=== PATIENT | male | born 1970 | race Asian ===

== ENCOUNTER 2024-06-27 22:07 | Inpatient (IN) | payer BC, SELFPAY ==
[2024-06-27] VITALS (16 sets, daily range): BP systolic 112–160; BP diastolic 77–121; BMI 30.1; BMI 29.2
[2024-06-27 18:26] LABS: Glucose - Point of Care 94 mg/dl (70-99)
--- NOTE | 2024-06-27 18:49 | ED.CVA ---
History of Present Illness
General
Chief Complaint: CVA/TIA Symptoms
Source: patient
Exam Limitations: none
Time Seen by Provider: 06/27/24 18:36
Onset of Stroke Symptoms
Onset of symptoms known: Yes
Date of onset of symptoms: 06/27/24
History of Present Illness
History of Present Illness:
See MDM
Phy Exam
Physical Exam
Physical Exam:
See MDM
NIH Stroke Score
Level of Consciousness: 0 - Alert
LOC questions: 0-Answers both correctly
LOC Commands: 0-Performs both correctly
Best Gaze: 0-Normal
Visual Hawkins: 0=Normal, no visual loss
Facial palsy: 0=Normal, symmetrical
Motor - Right Arm: 0=No drift 10 seconds
Motor - Left Arm: 0=No drift 10 seconds
Motor - Right Le-No drift 5 seconds
Motor - Left Le-No drift 5 seconds
Limb Ataxia: 0-Absent
Sensation: 0-Normal
Best Language: 0-No aphasia
Dysarthria: 0-Normal
Extinction and Inattention: 0-No abnormality
Total Score:: 0
Course
Orders/Labs/Results
Orders:
Orders
06/27/24 18:31
EKG [Electrocardiogram (*1)] Urgent
Reason for Study: Tachycardia
EKG- Treatment ONCE
06/27/24 18:43
CT Head & Neck Angio W/wo IV Urgent
Comment:
Reason For Exam: resolved slurred speech and R arm weakness
Diltiazem 125 mg/125 ml Nss [Cardizem] 125 mg in 125 ml IV NOW
Initial dose in mg/hr, then titrate:: 5
Titrate to keep:: Heart rate 80-100 bpm
Titrate by mg/hr:: 5 mg/hr
Frequency of titrations (minutes):: 15
Maximum dose in mg/hr:: 15
Diltiazem HCl [Cardizem] 20 mg IV NOW STA
06/27/24 18:[address] Non Medication Order As Directed
Physician Order: PTT 6 hours after initial start of Heparin infusion
Above order entered?: Yes
06/27/24 18:52
Complete Blood Count/With Diff Urgent
Comprehensive Metabolic Panel Urgent
PTT Urgent
Prothrombin Time Urgent
06/27/24 19:00
Heparin 00427 Units/250 ml 25,000 units in 250 ml IV PER PROTOCOL
Weight to be used for heparin protocol in kilograms (kg):: 95
Protocol:: Cardiac Tx/Acute Coronary
PTT Goal Range to be used:: PTT 73 to 111 seconds
Order type:: Initial
INITIAL Infusion Dose (UNITS/KG/hr) & then follow protocol:: 15 units/kg/hr
Infusion Dose in UNITS/hr & then follow protocol (UNITS/hr):: 1,450
INFUSION RATE in mL/hr & then follow protocol (mL/hr):: 14.5
PTT less than or equal to 64 seconds:: Increase rate by 200 units/hr (+ 2 mL/hr)
PTT 64.1 to 72.9 seconds:: Increase rate by 100 units/hr (+ 1 mL/hr)
PTT 73 to 111 seconds:: Target Range. No change in rate.
PTT 111.1 to 130.9 seconds:: Decrease rate by 100 units/hr (- 1 mL/hr)
PTT 131 to 199.9 seconds:: HOLD for 1 hr. Then decrease rate by 200 units/hr (- 2 mL/hr)
PTT greater than or equal to 200 seconds:: HOLD for 2 hrs & Notify Provider. Then decrease by 200 units/hr (-
2 mL/hr)
Lab follow-up:: Each change, PTT q6h until 2 consecutive are therapeutic. Then PTT
daily.
06/27/24 19:08
Add On - Microbiology Urgent
Tests Added?: pt/ptt
06/27/24 21:31
Admit/Transfer Patient As Directed
Co-Sign Provider:
Level of Care: Inpatient admission
Assign to:: IVU
Physician / Group: sonam
Diagnosis: atrial fib with RVR
Reason for Hospitalization: atrial fib with RVR
Expected length of stay greater than two midnights?: Yes
ELOS- Estimated Length of Stay in days: 3
I certify the patient meets the requirements for IP care: Yes
06/27/24 21:32
Code Status As Directed
Resuscitation Status: Full Code
PRN Pain Medication Management As Directed
May give lesser potent ordered pain med per pt: Yes
preference::
Protocol:: Medication orders for pain may be administered in a
manner that supports deferring to patient preference
when the pt is:
- Requesting an ordered lesser potent pain medication.
Least to most potent pain medications are defined
as: acetaminophen < NSAID < tramadol < opioids
(morphine, oxycodone, hydromorphone).
- Requesting a lesser dose of the same medication IF
ORDERED.
- Requesting a less intrusive route of administration
if both routes are prescribed by the provider (PO <
IV).
06/27/24 21:38
CARDIOLOGY CONSULT Routine
Consulting Provider: Xavi Laguerre
Was physician already notified: Yes
06/28/24 01:38
PTT Urgent
Abnormal Lab Results
06/27/24
18:52
RBC 3.95 L 10^6/uL
(4.70-6.10)
MCV 106.8 H fL
(80.0-94.0)
MCH 36.7 H pg
(27.0-31.0)
Monocytes % 10.0 H %
(1.7-9.3)
Creatinine 1.4 H mg/dL
(0.7-1.3)
AST 70 H U/L
(17-59)
ALT 76 H U/L
(0-50)
06/27/24 18:52
06/27/24 18:52
Vital Signs
Initial and Last Documented VS:
Initial Vital Signs
Temp Pulse Resp BP Pulse Ox
98.4 F 160 20 160/121 100
06/27/24 18:22 06/27/24 18:22 06/27/24 18:22 06/27/24 18:22 06/27/24 18:22
Last Documented Vital Signs
Temp Pulse Resp BP Pulse Ox
98.4 F 108 17 122/88 97
06/27/24 18:22 06/27/24 21:15 06/27/24 21:15 06/27/24 21:30 06/27/24 21:15
MDM/Problems Addressed
Differential Diagnosis Includes:
HPI and MDM Narrative:
53-year-old male presenting as a resolved TIA. Patient developed sudden onset of expressive aphasia. This was also associated with right arm numbness and weakness. Symptoms lasted for few minutes. On arrival, patient has no neurodeficits but
found to be in rapid A-fib. Patient does acknowledge that he has had palpitations for several months. I discussed with patient that his symptoms are likely related to throwing a clot from undiagnosed A-fib. Given that his symptoms were fleeting
and have fully resolved, neurology curb sided. Will start heparin but will avoid heparin bolus per neuro. Will obtain CT angio head and neck
Physical exam
General: Well appearing and non-toxic
HEENT: protecting airway
Neck: appears supple
CV: No evidence of cyanosis. Tachycardic and irregular
Resp: No accessory muscle use
Abd: Non-distended
Extremities: No deformities
Neuro: alert. No focal neurodeficits
Psych: Normal affect
Skin: Intact
Problems Addressed including Acute and Chronic Conditions affecting care:
1. TIA
Acuity: acute
Prognosis: stable
Details: Symptoms completely resolved. Likely in the setting of clot from undiagnosed A-fib. Will obtain CT angiogram
2. A-fib with RVR
Acuity: acute
Prognosis: unstable
Details: Patient started on Cardizem drip and heparin
Differential Diagnosis (but not limited to): CVA, TIA, intracranial hemorrhage, A-fib
Testing considered: Troponin but he denies chest pain or shortness of breath
Drug therapy (if applicable): OTC meds, please see d/c instruction regarding Rx drugs
Amount and/or Complexity of Data Reviewed
Clinical info obtained from: Patient
External data reviewed: N/A
Labs I independently reviewed (but not limited to): Mild LFT elevation
Radiology: The CT scan was personally and independently reviewed. In addition, official CT report reviewed.
Pulse Ox: not hypoxic
EKG independently reviewed: A-fib with RVR, normal axis, no STEMI
Director Of Community Services: A-fib with RVR
Critical Care: The high probability of a clinically significant, sudden or life threatening deterioration of the cardiovascular system(s) required my full and direct attention, intervention and personal management. The aggregate critical care time
was 35 minutes. This time is in addition to time spent performing reported procedures but includes the following:
[x] Data Review and interpretation
[x] Patient assessment and monitoring of vital signs
[x] Documentation
[x] Medication orders and management
Risk of Complication:
Social Determinants of health: Good social support
Discussed with other providers: Hospitalist, neurologist
Escalation of Care includes Admit/Obs: Given new onset A-fib and TIA, will admit
Occasional wrong word or 'sound a like' substitutions may have occurred due to the inherent limitations of voice recognition software. Read the chart carefully and recognize, using context, where substitutions have occurred.
*Critical Care Note
Total Time (30-74mins, 75-104mins- exclusive of procedures): 35 min
ED Attending Note
-
Portions of this chart may have been created with voice recognition software.� Occasional wrong word or��sound alike� substitutions may have occurred due to the inherent limitations of voice recognition software.
Discharge Plan
Departure
Patient Disposition: Admit
Date of Disposition: 06/27/24
Time of Disposition: 21:10
Admit to: Telemetry
Presentation/result/management discussed w/ accepting MD/DO: Hospitalist
Discharge Problem:
New onset a-fib, Brain TIA
Prescriptions:
No Action
No Current Medications
0
Referrals:
NONE,* [Family Provider] -
Interventions
Interventions:
*Risk Screen - Suicide Last Done: 06/27/24 18:22
*General Assessment Last Done: 06/27/24 18:22
*Neglect/Abuse Screening Last Done: 06/27/24 18:22
ED- Fall Risk Assessment Last Done: 06/27/24 18:47
*ED COVID-19 Vaccine History Last Done: 06/27/24 18:47
ED- Pulmonary Assessment Last Done: 06/27/24 19:17
ED- Neurological Assessment Last Done: 06/27/24 19:17
ED- Cardiac Assessment Last Done: 06/27/24 18:50
Discharge Date and Time
Print Language: BURMESE
[2024-06-27] MEDS: CARDIZEM 20 MG IV (18:59)
[2024-06-27 19:01] LABS: % Basophils 0.7 % (0-2); % Eosinophils 0.7 % (0-6); % Immature Granulocytes 0.5 % (0-0.5); % Lymphocytes 43.7 % (20.5-51.1); % Neutrophils 44.4 % (42.2-75.2); Absolute Lymphocytes 2.7 10^3/uL (1.2-3.4); Absolute Monocytes 0.6 10^3/uL (0.1-0.6); Absolute Neutrophils 2.7 10^3/uL (1.4-6.5); Hematocrit 42.2 % (39.0-52.0); Hemoglobin 14.5 g/dL (13.0-18.0); Mean Corp Hgb Conc. 34.4 g/dL (33.0-37.0); Mean Corpuscular Hgb 36.7 pg (27.0-31.0); Mean Corpuscular Volume 106.8 fL (80.0-94.0); Mean Platelet Volume 10.3 fL (7.4-10.4); Nucleated Red Blood Cells % 0 % (-); Platelet Count 228 10^3/uL (130-400); Red Blood Cell Count 3.95 10^6/uL (4.70-6.10); White Blood Cell Count 6.1 10^3/uL (4.8-10.8)
[2024-06-27] MEDS: CARDIZEM 125 IV (19:06)
[2024-06-27 19:15] LABS: ALT (SGPT) 76 U/L (0-50); AST (SGOT) 70 U/L (17-59); Albumin 4.5 g/dl (3.5-5.0); Alkaline Phosphatase 60 U/L (38-126); Blood Urea Nitrogen 13 mg/dl (9-20); Calcium 9.1 mg/dl (8.4-10.2); Carbon Dioxide 23 mmol/L (22-30); Chloride 105 mmol/L (98-107); Estimated Creatinine Clearance 71 ml/min; Glucose 98 mg/dl (70-99); Potassium 3.7 mmol/L (3.5-5.1); Sodium 141 mmol/L (135-145); Total Protein 6.7 g/dl (6.3-8.2); eGFR > 60.00
[2024-06-27 19:24] LABS: INR 0.96; PT 13.1 Sec (11.4-14.6)
[2024-06-27 19:25] LABS: APTT 28.8 Sec (23.4-35.0)
[2024-06-27] MEDS: HEPARIN 25000 UNITS/250 ML IV (19:38)
--- NOTE | 2024-06-27 21:14 | HPS.HSE ---
Addendum entered and electronically signed by Pastor Cobb DO 06/27/24 22:28:
Patient seen and examined independently. Agree with findings and plan as set forth by JAMI Thayer.
Patient is a 53y M with no known PMH who presents to ED complaining of R finger tingling / numbness, speech difficulty and L facial droop. Symptoms started just prior to presentation and lasted for several minutes. They have since fully
resolved. Patient denies any prior h/o similar symptoms. Speech difficulty was described as expressive aphasia - patient was aware and knew what he wanted to say but could not produce the words. No dysarthria / word salad / etc.
Patient is noted to be in A-Fib with RVR on initial assessment. He states that he has appreciated intermittent palpitations- probably going back a year or so.
No chest pain, dizziness, vision changes, dyspnea, etc.
He is on no current medications.
He is a current every day smoker and drinks about 6 beers per day every day.
Ass:
CVA / TIA
Atrial Fibrillation with Rapid Ventricular Response - Newly Recognized
Alcohol Use Disorder
Tobacco Use Disorder
Renal Insufficiency - RIVER v CKD
Macrocytosis
Abnormal LFTs
Plan:
Admit for further evaluation and treatment.
Continue IV diltiazem and titrate as needed for rate control.
Avoid hypotension.
Check Echo. Cardiology evaluation for additional recommendations.
Continue IV heparin infusion (started without bolus after review with Neurology).
Transition to [facility] prior to discharge.
MRI brain in the AM for further evaluation.
Monitor neurologic exam overnight.
Check lipid panel, A1C, etc.
Neurology evaluation for additional recommendations.
Encourage smoking cessation.
Monitor for signs / symptoms of alcohol withdrawal and treat accordingly if needed.
Encourage abstinence from alcohol.
Monitor renal function for changes over the next 48 hours to determine RIVER v CKD.
Original Note:
Family Physician
-
Family Physician: * NONE
Chief Complaint
-
Palpitation
Slurred speech
Facial droop
Right arm weakness
History of Present Illness
53-year-old with no significant past medical history presented to us with sudden onset of slurred speech, right arm weakness and left facial droop which lasted for 1 to 2 minutes. Patient stated, he was feeling palpitation for more than a year now.
Denied any chest pain or short of breath. Patient denied any headache, dizzy or syncope. Patient denied any abdominal pain, nausea, vomiting, diarrhea. Patient denied dysuria, hematuria. Patient drinks 6 beers daily. Last drink was this
afternoon
On arrival, patient was in A-fib with RVR. Initiated on Cardizem Cardizem and heparin drip. Head CT with no acute findings
Admitting for further management
Medical History
Past Medical History
Past Medical History: Reports None
Past Surgical History: Reports None
Social History
Tobacco: Smoker (Half a pack a day)
Alcohol: Daily (6 beers daily)
Drug: None
Personal:
Living: With Family
Employment: Employed
Family History
Family History: Not pertinent
Allergies / Home Medications
Allergies reflects when Allergies were last updated in [facility].
Home Medications with original date entered in [facility]
Allergy/Medication List:
Allergies
Allergy/AdvReac Type Severity Reaction Status Date / Time
aspirin Allergy Hives Verified 06/27/24 18:25
Review of Systems
-
Constitutional: Reports No Symptoms
EENT: Reports No Symptoms
Respiratory: Reports No Symptoms
Cardiac: Reports Palpitations
Abdomen/GI: Reports No Symptoms
: Reports No Symptoms
Musculoskeletal: Reports No Symptoms
Skin: Reports No Symptoms
Neurological: Reports Other (Right arm weakness, slurred speech, facial droop)
Endocrine: Reports No Symptoms
Hematologic/Lymphatic: Reports No Symptoms
Psych: Reports No Symptoms
Physical Exam
Vital Signs
Vital Signs
Temp Pulse Resp BP Pulse Ox
98.4 F 111 24 116/87 98
06/27/24 18:22 06/27/24 21:00 06/27/24 21:00 06/27/24 21:00 06/27/24 21:00
Physical Exam
General: Well Developed, Well Nourished and No Apparent Distress
HEENT: NormoCephalic, Moist mucous membranes and Atraumatic
Respiratory: Clear
Cardiac: Irregular Rhythm and Tachycardia; No Murmur or Rub
GI: Soft, Non Tender, Non Distended and Normal Bowel Sounds; No Organomegaly
Rectal: Deferred by Provider
Musculoskeletal: No Clubbing, No Cyanosis and No Edema
Skin: No Rash
Neuro: AO x 3 and Nonfocal/grossly intact
Psych: Calm
Laboratory Results
-
06/27/24 18:52
06/27/24 18:52
Laboratory Results
PT 13.1 Sec (11.4-14.6) 06/27/24 18:52
INR 0.96 06/27/24 18:52
APTT 28.8 Sec (23.4-35.0) 06/27/24 18:52
Total Bilirubin 1.0 mg/dl (0.2-1.3) 06/27/24 18:52
AST 70 U/L (17-59) H 06/27/24 18:52
ALT 76 U/L (0-50) H 06/27/24 18:52
Alkaline Phosphatase 60 U/L (38-126) 06/27/24 18:52
Data Reviewed
-
CT Scan: Report Reviewed by me
Lab Data: Labs Reviewed by me
Impression/Plan
-
# New onset A-fib
-On Cardizem and heparin drip
-Obtain echocardiogram
-Cardiology consulted
-EKG with A-fib with RVR
# Expressive aphasia and right arm weakness rule out TIA
-Head CT as an outpatient is negative
-Head neck CTA pending
-Obtain MRI of the head
-Obtain A1c and lipid profile
-Aspirin and statin
-PT/OT consult
-Neurology consult
# Acute kidney injury likely dehydration
-Normal saline x 1 bag
-BMP in a.m.
# Transaminitis likely from alcohol abuse
-AST 70, ALT 76
-Denied any abdominal pain
-Monitor LFTs in a.m.
# Alcohol dependence
-Drinks 6 beers daily
-Last drink was this afternoon
-Alcohol protocol initiated
-Monitor MSAS
# DVT prophylaxis
-Heparin drip
# CODE STATUS
-Full code
[2024-06-28] VITALS (13 sets, daily range): BP systolic 114–144; BP diastolic 78–106; BMI 29.2
[2024-06-28 00:22] LABS: GGTP 450 U/L (15-73); Magnesium 1.9 mg/dl (1.6-2.3); Phosphorus 3.3 mg/dl (2.5-4.5)
[2024-06-28 00:24] LABS: Alcohol None Detected
[2024-06-28 00:59] LABS: Urine Albumin Negative (Neg - Trace); Urine Bilirubin Negative (Negative); Urine Character Clear (Clear); Urine Color Yellow; Urine Glucose Negative (Negative); Urine Ketone 1+ (Negative); Urine Leukocyte Negative (Negative); Urine Nitrite Negative (Negative); Urine Occult Blood Negative (Negative); Urine Specific Gravity 1.015 (<1.030); Urine Urobilinogen Negative (Neg - 1+)
[2024-06-28 01:11] LABS: Amphetamines Negative (Negative); Barbiturates Negative (Negative); Benzodiazepines Negative (Negative); Buprenorphine Negative (Negative); Cocaine Negative (Negative); Marijuana Negative (Negative); Methadone Negative (Negative); Methamphetamines Negative (Negative); Opiates Negative (Negative); Phencyclidine Negative (Negative); Tricyclic Antidepressants Negative (Negative)
[2024-06-28 01:44] LABS: APTT 103.2 Sec (23.4-35.0)
[2024-06-28] MEDS: NSS 1000 IV (03:10)
[2024-06-28] MEDS: LIPITOR 40 MG PO (03:10)
[2024-06-28 06:30] LABS: APTT 178.2 Sec (23.4-35.0)
[2024-06-28 06:57] LABS: ALT (SGPT) 62 U/L (0-50); AST (SGOT) 50 U/L (17-59); Albumin 3.7 g/dl (3.5-5.0); Alkaline Phosphatase 61 U/L (38-126); Blood Urea Nitrogen 17 mg/dl (9-20); Calcium 8.5 mg/dl (8.4-10.2); Carbon Dioxide 24 mmol/L (22-30); Chloride 107 mmol/L (98-107); Direct Bilirubin 0.2 mg/dl (0.0-0.4); Estimated Creatinine Clearance 98 ml/min; Glucose 91 mg/dl (70-99); Potassium 3.5 mmol/L (3.5-5.1); Sodium 138 mmol/L (135-145); Total Bilirubin 1.3 mg/dl (0.2-1.3); Total Protein 5.8 g/dl (6.3-8.2); eGFR > 60.00
--- NOTE | 2024-06-28 08:14 | W.PN.UPDATE ---
Update Note
Progress Note Update
I saw and evaluated the patient. I reviewed the resident�s note and agree with findings and plan as documented in the resident�s note.
c/o numbness in L 3rd and 4th fingers.
Gen: NAD, AAOx3.
Eyes: EOMI, PERRLA, no scleral icterus.
Neck: supple.
CV: irreg/irreg, +S1/S2, no m/r/g.
Resp: CTAB, no rales, wheezes, or rhonchi.
Abd: +BS, soft, NT, ND
Skin: No rashes.
Neuro: CN 2-12 intact, denies sensory deficits when L fingers are touched, non-focal.
Psych: Normal mood and affect.
CT brain: No acute intracranial process. Specifically, no evidence of acute hemorrhage.
CTA Head: No significant arterial stenosis. No saccular aneurysm.
CTA Neck: No significant arterial stenosis.
New onset A-fib:
-cont Cardizem/heparin gtts
-check echo
-Cardiology following
Expressive aphasia and RUE weakness:
-CT brain/CTA head/neck unremarkable
-check MRI brain
-cont heparin gtt as above
-check A1c and lipid profile
-cont statin
-PT/OT
-Neurology following
Alcohol abuse disorder:
-Drinks 6 beers daily, last drink was on the afternoon of admission
-Last drink was this afternoon
-Alcohol protocol initiated
-Monitor MSAS
-Transaminitis likely from alcohol abuse
RIVER, resolved with IVFs
FULL/Heparin gtt
Total time spent on today's encounter was 50 minutes which included time spent in counseling the patient/family regarding diagnosis and treatment plan as listed above, goals of care, and symptom management. Case was discussed with nursing staff,
specialists, and care coordinators/case management. All labs and imaging personally reviewed by me. Remainder the time spent in detailed review of previous records, lab data, imaging, and other medical provider documentation.
--- NOTE | 2024-06-28 09:00 | W.PN.HOSP.TC ---
Addendum entered and electronically signed by Payton Gomez MD, Resident 06/28/24 12:17:
CHAD2 VASC score at 2, will switch to eliquis based on cardiology.
Original Note:
Today's Communication/Plan
-
Obtain lipid panel, stop IV fluids.
Continue Diltiazem per cardiology.
Resume regular diet.
MSAS protocol.
Assessment / Plan
Assessment / Plan
Assessment- 53-year-old male with no significant past medical history and no PCP presents to the hospital for evaluation of palpitations and evaluation of TIA symptoms-diagnosed with A-fib with RVR, TIA.
Plan-
CVA/TIA -
CT brain negative.
Suspect secondary to A-fib.
Obtain lipid levels,
HbA1c at 5, no diabetes.
Neurology consulted on board. MRI of the brain pending.
Patient stated that he refused PT, OT, ST evaluation.
A-fib with RVR-
Patient was admitted to IVU on 06/27/2024.
Currently on IV diltiazem and heparin drip
Echocardiogram pending, cardiology on board.
Transition to DOAC prior to discharge.
RIVER-
Likely secondary to hypovolemia from alcohol use disorder.
Serum creatinine at the time of admission-1.4, resolved-0.9 today
Discontinue NS.
Alcohol Use disorder -
Drinks 6 to 7 glasses of any available alcoholic drink to him every day.
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 Last drink day before yesterday.
Monitor patient for withdrawal with MSAS protocol.
Tobacco use disorder-
Abstinence,
DVT prphylaxis - on Heparin Drip.
Code status - Full code.
Anticipated Discharge: Within 24 hours
Subjective/Interval History
-
Date of Service: June 28, 2024
Patient reports to have paresthesia on his ulnar side of the palm and numbness over the proximal 1st 3 phalanges of his right hand. He still reports to have some palpitations. Denies having any weakness, slurred speech, swallowing difficulty,
focal weakness, trouble walking. Stated that he refused physical therapy occupational therapy and speech therapy.
Objective Data
-
Labs:
Laboratory Results
06/28/24 06/28/24 06/28/24
01:24 05:52 13:35
APTT 103.2 H 178.2 H* Pending
Sodium 138
Potassium 3.5
Chloride 107
Carbon Dioxide 24
BUN 17
Creatinine 0.9
Glucose 91
Calcium 8.5
Total Bilirubin 1.3
AST 50
ALT 62 H
Alkaline Phosphatase 61
Vital Signs:
Vital Signs
Temp Pulse Resp BP Pulse Ox
98.4 F 75 20 141/104 98
06/28/24 07:18 06/28/24 02:00 06/28/24 07:18 06/28/24 02:00 06/28/24 07:18
I&O
06/27/24 06/28/24 06/29/24
06:59 06:59 06:59
Intake Total 442 / 442
Balance 442 / 442
Review of Systems
-
History Source: Patient
Constitutional: Denies Fever, No Appetite, Fatigue, Chills or Weakness
Respiratory: Denies Cough, Trouble Breathing or Wheezing
Cardiac: Reports Palpitations; Denies Chest Pain, Diaphoresis, Syncope, PND or Orthopnea
Abdomen/GI: Denies Abdominal Pain, Nausea, Vomiting, Diarrhea or Constipated
Genitourinary: Denies Dysuria, Frequency, Flank Pain or Difficulty Voiding
Musculoskeletal: Denies Joint Pain or Joint Swelling
Neuro: Reports No Symptoms; Denies Dizzy, Headache or Weakness
Endocrine: Denies No Symptoms
Hematologic / Lymphatic: Denies No Symptoms
Allergy / Immunology: Denies No Symptoms
Physical Exam
-
General: Comfortable; Negative No Apparent Distress
HEENT: Moist Mucous Membranes
Respiratory: Clear to Auscultation; Negative Wheezes, Rales or Rhonchi
Cardiac: S1/S2 and Irregular Rhythm; Negative Murmur, Rub or Gallop
GI: Soft, Nontender, Nondistended and Normal Bowel Sounds
Musculoskeletal: No Clubbing, No Cyanosis and No Edema
Skin: Warm
Neuro: Awake, Alert, AO x 3 and Nonfocal/Grossly Intact; Negative No Motor Deficits, Tremors, No Sensory Deficits, Slurred Speech or Facial Droop
Psych: Calm
Data Reviewed
-
CT Scan: Other (Pending.)
MRI: Other (pending)
Medical Tests (Nuc Med, Echo etc): Other (echo pending. )
Labs: Labs Reviewed by me, Discussed with Physician and Discussed with Nurse
--- NOTE | 2024-06-28 09:07 | CON.NEURO ---
Consultation
Order
Date of Consultation: 06/28/24
Requesting Provider: Anu Connolly CRNP
Reason for Consult: stroke
Neurology Consultation Note.
HPI: This is a 53-year-old RH man with no prior medical care who presented to [facility] on 06/27/2024 with transient motor, sensory and speech changes. According to the patient he developed an acute tingling in the II-IV digits of
the R hand lasting for 1-2 minutes that started around 6 PM on 06/27/2024. He reports that his right hand initially felt cold and he was unable to remove a glove with it. Additionally, he experienced trasneint slurred speech and left-sided facial
weakness lasting for a few minutes. No reports of headache, change in vision, vertigo, neck stiffness, sensory symptoms in the right leg.
Mr. Layne admits to consuming 6�7 caffeinated beverages a day in addition to daily alcohol use.
ER VS: 160/121, 160, afebrile.
EKG: A-fib, QTc Int : 491 ms
PDMP:none
Labs: Glucose�98, creatinine�1.4, normal sodium, WBCs, platelets. JG tube�450, ALT�62, normal AST, MCV�106.8,, unremarkable UA, negative U tox, LDL�66, hemoglobin A1c�5.0
CT head wo contrast�no acute abnormalities, moderate brain atrophy for the age.
CTA head/neck�no hemodynamically significant stenosis, dissection or aneurysm
PMH: no prior medical care, nicotine/ EtOH addiction,
PSH: none
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
FH: Mother from lung cancer, father from 'lymphocytic cancer.
All: Aspirin�angioedema.
ROS:Constitutional: Negative. Negative for chills, fever and unexpected weight change.
HENT: Negative for ear pain, hearing loss, tinnitus and trouble swallowing.
Eyes: Negative. Negative for photophobia, pain and visual disturbance.
Respiratory: Negative for cough, choking and shortness of breath.
Cardiovascular: Positive for palpitations
Gastrointestinal: Negative for abdominal pain and vomiting.
Endocrine: Negative. Negative for cold intolerance.
Genitourinary: Negative for dysuria, flank pain and urgency.
Musculoskeletal: Negative for back pain, gait problem, neck pain and neck stiffness.
Skin: Negative for rash.
Allergic/Immunologic: Negative. Negative for immunocompromised state.
Neurological: Negative for dizziness, tremors, seizures, speech difficulty, numbness and headaches.
Psychiatric/Behavioral: Negative for behavioral problems, confusion and hallucinations.
General: Well developed. In no acute distress.
Cardio: Regular rate and rhythm without murmur. Extremities are without cyanosis or edema.
Neuro:
Mental Status: Alert, oriented to person, place, and date. Normal attention and recall. Good fund of knowledge. Follows complex requests across the midline. Comprehension, naming, and repetition intact. Immediate and delayed recall 3/3.
Cranial Nerves: . Pupils are equally round and reactive to light. EOMs full. Visual kasper full to confrontation. No ptosis. No nystagmus. V1-V3 intact to light touch and pinprick bilaterally, symmetric. Face symmetric. Normal hearing AU.
The palate elevated well. SCMs and traps 5/5. Tongue midline. No dysarthria.
Motor: Normal bulk and tone. No pronator or arm drift. Strength 5/5 throughout. No clonus.
Reflexes: 2+ throughout the upper extremities and knees. 2/2 in AJs. Plantar responses flexor bilaterally.
Sensory: Normal pinprick, vibration and JPS.
Coordination: No dysmetria or tremor.
Gait: deferred
Assessment and Plan:
I. Left MCA cortical stroke, likely etiology�embolic.
II. New onset of A-fib with RVR. [id number]. Stroke risk -2. 2.2% per year in >90,000 patients (the [place] Atrial Fibrillation Cohort Study) and 2.9% risk of stroke/TIA/systemic embolism.
III. ETOH and nicotine addiction.
IV. Moderate front0/temporal atrophy.
-Continue Telemetry monitoring.
-Brain MRI without altagracia
-TTE with bubble studies, if unremarkable-please proceed with VICENTE
-Continue Lipitor 40 mg QHS with close monitoring of LFTs
-Continue IV thiamine
-Please check TFTs, B12, folic acid.
-ASA 81 mg QD
-Addiction psychiatry consult
-Cardiology consult
-Outpatient neuropsychological evaluation
-DVT prophylaxis.
I personally reviewed all radiology and labs along with past medical records pertinent to current medical problems. Total time spent in patient care is 60 minutes.
Thank you for allowing us to participate in the care of this patient. We will continue to follow. Please do not hesitate to contact us with any questions or concerns.
Subjective/Objective
Subjective Data
Date of Service: June 28, 2024
Objective Data
Vital Signs
Temp Pulse Resp BP Pulse Ox
36.9 C 75 20 141/104 98
06/28/24 07:18 06/28/24 02:00 06/28/24 07:18 06/28/24 02:00 06/28/24 07:18
Lab Results
06/27/24 18:52
06/28/24 05:52
PT 13.1 Sec (11.4-14.6) 06/27/24 18:52
INR 0.96 06/27/24 18:52
APTT 178.2 Sec (23.4-35.0) H* 06/28/24 05:52
Sodium 138 mmol/L (135-145) 06/28/24 05:52
Potassium 3.5 mmol/L (3.5-5.1) 06/28/24 05:52
BUN 17 mg/dl (9-20) 06/28/24 05:52
Glucose 91 mg/dl (70-99) 06/28/24 05:52
Calcium 8.5 mg/dl (8.4-10.2) 06/28/24 05:52
Phosphorus 3.3 mg/dl (2.5-4.5) 06/27/24 23:52
LDL Cholesterol, Calc Cancelled 06/28/24 06:00
Ur Buprenorphine Negative (Negative) 06/28/24 00:49
Patient Allergies
aspirin Allergy (Verified 06/27/24 18:25)
Hives
Medications
-
Active Medications
Generic Name Dose Route Start Last Admin
Trade Name Freq PRN Reason Stop Dose Admin
Acetaminophen 650 mg 06/27/24 23:24
Acetaminophen 650 Mg Rectal Suppository RECTAL 07/25/24 23:23
Q4HPRN PRN
CHANCE, mild pain, or temp >100.4F
Acetaminophen 650 mg 06/27/24 23:24
Acetaminophen 325 Mg Tablet PO 07/25/24 23:23
Q4HPRN PRN
CHANCE, mild pain, or temp >100.4F
Atorvastatin Calcium 40 mg 06/27/24 23:24 06/28/24 03:10
Atorvastatin (Lipitor) 40 Mg Tablet PO 07/25/24 23:23 40 mg
QPM ALIDA Administration
Folic Acid 1 mg 06/28/24 08:00
Folic Acid 1 Mg Tablet PO 07/26/24 07:59
DAILY ALIDA
Heparin Sodium 25,000 units in 250 mls @ 0 mls/hr 06/27/24 19:00 06/27/24 19:38
Heparin 64793 Units/250 Ml IV 250 mls
PER PROTOCOL ALIDA Administration
Protocol
Per Protocol
Folic Acid 1 mg/ Sodium 50.2 mls @ 200.8 mls/hr 06/27/24 23:24
Chloride IV 07/25/24 23:23
DAILYPRN PRN
if NPO
Diltiazem HCl 125 mg in 125 mls @ 0 mls/hr 06/27/24 00:57
Cardizem IV
PER PROTOCOL ALIDA
Protocol
Per Protocol
Sodium Chloride 1,000 mls @ 80 mls/hr 06/27/24 23:24 06/28/24 03:10
Nss IV 06/28/24 11:53 1,000 mls
.[id number] ALIDA Administration
Lorazepam 1 mg 06/27/24 23:24
Lorazepam 1 Mg Tablet PO 07/25/24 23:23
Q2HPRN PRN
MSAS 5-7
Lorazepam 1 mg 06/27/24 23:24
Lorazepam 2 Mg/Ml Vial IV 07/25/24 23:23
Q1HPRN PRN
MSAS 8-11
Lorazepam 2 mg 06/27/24 23:24
Lorazepam 2 Mg/Ml Vial IV 07/25/24 23:23
Q1HPRN PRN
MSAS > 11
Sodium Chloride 0 ml 06/27/24 23:24
Sodium Chloride 0.9% (Preservative Free) 10 Ml Vial IV 07/25/24 23:23
PRN PRN
To dilute IV Ativan
Protocol
Sodium Chloride 0 flush 06/28/24 02:00
Sodium Chloride 0.9% (Flush) Syringe IV 07/26/24 01:59
PER PROTOCOL ALIDA
Thiamine HCl 200 mg 06/28/24 08:00
Thiamine (100 Mg/Ml) 2 Ml Vial IV 06/30/24 20:01
Q12 ALIDA
Thiamine HCl 100 mg 07/01/24 08:00
Thiamine 100 Mg Tablet PO 07/29/24 07:59
BID ALIDA
Home Medications
�Medication �Instructions �Recorded
No Meds [No Current Medications] 06/27/24
Vital Signs and Labs
-
Vital Signs and Labs:
Vital Signs
Temp Pulse Resp BP Pulse Ox
36.9 C 75 20 141/104 98
06/28/24 07:18 06/28/24 02:00 06/28/24 07:18 06/28/24 02:00 06/28/24 07:18
Lab Results
06/27/24 18:52
06/28/24 05:52
PT 13.1 Sec (11.4-14.6) 06/27/24 18:52
INR 0.96 06/27/24 18:52
APTT 178.2 Sec (23.4-35.0) H* 06/28/24 05:52
Sodium 138 mmol/L (135-145) 06/28/24 05:52
Potassium 3.5 mmol/L (3.5-5.1) 06/28/24 05:52
BUN 17 mg/dl (9-20) 06/28/24 05:52
Glucose 91 mg/dl (70-99) 06/28/24 05:52
Calcium 8.5 mg/dl (8.4-10.2) 06/28/24 05:52
Phosphorus 3.3 mg/dl (2.5-4.5) 06/27/24 23:52
LDL Cholesterol, Calc Cancelled 06/28/24 06:00
Ur Buprenorphine Negative (Negative) 06/28/24 00:49
Medications
-
Medications:
Generic Name Dose Route Start Last Admin
Trade Name Freq PRN Reason Stop Dose Admin
Acetaminophen 650 mg 06/27/24 23:24
Acetaminophen 650 Mg Rectal Suppository RECTAL 07/25/24 23:23
Q4HPRN PRN
CHANCE, mild pain, or temp >100.4F
Acetaminophen 650 mg 06/27/24 23:24
Acetaminophen 325 Mg Tablet PO 07/25/24 23:23
Q4HPRN PRN
CHANCE, mild pain, or temp >100.4F
Atorvastatin Calcium 40 mg 06/27/24 23:24 06/28/24 03:10
Atorvastatin (Lipitor) 40 Mg Tablet PO 07/25/24 23:23 40 mg
QPM ALIDA Administration
Folic Acid 1 mg 06/28/24 08:00
Folic Acid 1 Mg Tablet PO 07/26/24 07:59
DAILY ALIDA
Heparin Sodium 25,000 units in 250 mls @ 0 mls/hr 06/27/24 19:00 06/27/24 19:38
Heparin 05889 Units/250 Ml IV 250 mls
PER PROTOCOL ALIDA Administration
Protocol
Per Protocol
Folic Acid 1 mg/ Sodium 50.2 mls @ 200.8 mls/hr 06/27/24 23:24
Chloride IV 07/25/24 23:23
DAILYPRN PRN
if NPO
Diltiazem HCl 125 mg in 125 mls @ 0 mls/hr 06/27/24 00:57
Cardizem IV
PER PROTOCOL ALIDA
Protocol
Per Protocol
Sodium Chloride 1,000 mls @ 80 mls/hr 06/27/24 23:24 06/28/24 03:10
Nss IV 06/28/24 11:53 1,000 mls
.[id number] ALIDA Administration
Lorazepam 1 mg 06/27/24 23:24
Lorazepam 1 Mg Tablet PO 07/25/24 23:23
Q2HPRN PRN
MSAS 5-7
Lorazepam 1 mg 06/27/24 23:24
Lorazepam 2 Mg/Ml Vial IV 07/25/24 23:23
Q1HPRN PRN
MSAS 8-11
Lorazepam 2 mg 06/27/24 23:24
Lorazepam 2 Mg/Ml Vial IV 07/25/24 23:23
Q1HPRN PRN
MSAS > 11
Sodium Chloride 0 ml 06/27/24 23:24
Sodium Chloride 0.9% (Preservative Free) 10 Ml Vial IV 07/25/24 23:23
PRN PRN
To dilute IV Ativan
Protocol
Sodium Chloride 0 flush 06/28/24 02:00
Sodium Chloride 0.9% (Flush) Syringe IV 07/26/24 01:59
PER PROTOCOL ALIDA
Thiamine HCl 200 mg 06/28/24 08:00
Thiamine (100 Mg/Ml) 2 Ml Vial IV 06/30/24 20:01
Q12 ALIDA
Thiamine HCl 100 mg 07/01/24 08:00
Thiamine 100 Mg Tablet PO 07/29/24 07:59
BID ALIDA
Home Medications
-
Home Medications
No Meds [No Current Medications] 06/27/24
[2024-06-28] MEDS: FOLVITE PO (09:37)
[2024-06-28] MEDS: THIAMINE INJECTION IV (09:38)
[2024-06-28 10:18] LABS: HDL Cholesterol 82 mg/dl; LDL Cholesterol, Calculated 66 mg/dl; Total Cholesterol 160 mg/dl (50-199); Triglyceride 60 mg/dl (10-149); Very Low Density Lipoprotein 12 mg/dl (0-30)
--- NOTE | 2024-06-28 12:17 | PTCARENOTE ---
received patient this am sleeping but easily awakened. Neuro check completed, please see documentation. patient refused am medications. MSAS 0. IV Cardizem @ 5cc/hr and IV heparin on hold and resumed at 0740 at 1250units and hour, and IV NSS was
infusing at 80cc/hr , IVF D/C'd as ordered.
monitor remains in Afib, HR 60's, VSS. family at bedside.
--- NOTE | 2024-06-28 13:32 | PTCARENOTE ---
patient is for MRI, TT Dr. Nelson, patient is allowed to go to MRI with no heparin or cardizem drip, will resume on return from MRI.
[2024-06-28] MEDS: HEPARIN 25000 UNITS/250 ML IV (13:40)
[2024-06-28] MEDS: CARDIZEM 125 IV (13:42)
[2024-06-28 14:04] LABS: APTT 115.9 Sec (23.4-35.0)
--- NOTE | 2024-06-28 14:30 | W.PN.HOSP.TC ---
Today's Communication/Plan
-
Stop heparin.
Hold anticoagulation until cleared by neurology. Defer anticoagulation decision to neurology and cardiology.
Sequential compression devices for DVT prophylaxis.
Continue diltiazem drip.
Assessment / Plan
Assessment / Plan
Physical exam -
General: Comfortable; Negative No Apparent Distress
HEENT: Moist Mucous Membranes
Respiratory: Clear to Auscultation; Negative Wheezes, Rales or Rhonchi
Cardiac: S1/S2 and Irregular Rhythm; Negative Murmur, Rub or Gallop
GI: Soft, Nontender, Nondistended and Normal Bowel Sounds
Musculoskeletal: No Clubbing, No Cyanosis and No Edema
Skin: Warm
Neuro: Awake, Alert, AO x 3 and Nonfocal/Grossly Intact; Negative No Motor Deficits, Tremors, No Sensory Deficits, Slurred Speech or Facial Droop
Psych: Calm
Assessment- 53-year-old male with no significant past medical history and no PCP presents to the hospital for evaluation of palpitations and evaluation of TIA symptoms-diagnosed with A-fib with RVR, TIA.
Plan-
CVA/TIA -
CT brain negative.
Suspect secondary to A-fib.
Obtain lipid levels,
HbA1c at 5, no diabetes.
Neurology consulted on board. MRI of the brain pending.
Patient stated that he refused PT, OT, ST evaluation.
A-fib with RVR-
Patient was admitted to IVU on 06/27/2024.
Currently on IV diltiazem and heparin drip
Thyroid function tests, proBNP pending.
Patient drinks 7 to 10 cups of caffeine a day.
Currently anticoagulation on hold.
RIVER-
Likely secondary to hypovolemia from alcohol use disorder.
Serum creatinine at the time of admission-1.4, resolved-0.9 today
Discontinue NS.
Alcohol Use disorder -
Drinks 6 to 7 glasses of any available alcoholic drink to him every day.
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 Last drink day before yesterday.
Monitor patient for withdrawal with MSAS protocol.
Tobacco use disorder-
Abstinence,
DVT prohylaxis -SCD
Code status - Full code.
Of note, patient was started on heparin drip in the ER upon admission. We received the patient on heparin drip. However due to patient's increased bleeding risk from stroke, neurology service advised that to hold on the heparin drip at this point
of time. Patient's [id number] score is at 2. Intermediate risk. Okay to resume anticoagulation on this patient when cleared by neurology.
Anticipated Discharge: 24 - 48 hours
Subjective/Interval History
-
Date of Service: June 28, 2024
Patient reports to have paresthesia on his ulnar side of the palm and numbness over the proximal 1st 3 phalanges of his right hand. He still reports to have some palpitations. Denies having any weakness, slurred speech, swallowing difficulty,
focal weakness, trouble walking. Stated that he refused physical therapy occupational therapy and speech therapy.
Objective Data
-
Labs:
Laboratory Results
06/28/24 06/28/24 06/28/24
05:52 13:39 20:30
APTT 178.2 H* 115.9 H Pending
Sodium 138
Potassium 3.5
Chloride 107
Carbon Dioxide 24
BUN 17
Creatinine 0.9
Glucose 91
Calcium 8.5
Total Bilirubin 1.3
AST 50
ALT 62 H
Alkaline Phosphatase 61
Vital Signs:
Vital Signs
Temp Pulse Resp BP Pulse Ox
98.1 F 68 20 132/96 97
06/28/24 12:07 06/28/24 12:15 06/28/24 12:07 06/28/24 12:09 06/28/24 12:07
I&O
06/27/24 06/28/24 06/29/24
06:59 06:59 06:59
Intake Total 442 / 442
Balance 44
Review of Systems
-
History Source: Patient
Constitutional: Reports No Symptoms
EENT: Reports No Symptoms Reported
Respiratory: Reports No Symptoms
Cardiac: Reports Palpitations
Abdomen/GI: Reports No Symptoms
Breast: Reports No Symptoms
Musculoskeletal: Reports No Symptoms
Neuro: Reports Numbness (In the left 3 fingers, paresthesias on the ulnar side of the left hand.)
Hematologic / Lymphatic: Reports No Symptoms
Allergy / Immunology: Reports No Symptoms
Data Reviewed
-
Labs: Labs Reviewed by me, Discussed with Physician and Discussed with Nurse
--- NOTE | 2024-06-28 14:41 | PTCARENOTE ---
Dr. Gomez ordered to D/C IV heparin drip.
--- NOTE | 2024-06-28 15:11 | PTCARENOTE ---
portable chest xray completed as ordered.
[2024-06-28 16:12] LABS: TSH Reflex To Free T4 4.65 uIU/ml (0.47-4.68)
[2024-06-28 16:48] LABS: Folate 11.2 ng/ml (2.76-20); Vitamin B12 641 pg/ml (239-931)
[2024-06-28 17:22] LABS: Blood Urea Nitrogen 19 mg/dl (9-20); Calcium 9.2 mg/dl (8.4-10.2); Carbon Dioxide 29 mmol/L (22-30); Chloride 103 mmol/L (98-107); Estimated Creatinine Clearance 98 ml/min; Glucose 103 mg/dl (70-99); Sodium 139 mmol/L (135-145); eGFR > 60.00
[2024-06-28 17:31] LABS: NT-proBNP 831 pg/ml
[2024-06-28] MEDS: LIPITOR PO (18:00)
--- NOTE | 2024-06-28 18:00 | PTCARENOTE ---
patient has refused all po medications today. I educated patient on why the medications is ordered and he stated, 'I dont want them'. I did educated patient on IV Cardizem and the eliquis that was ordered for tonight, patient stated I will take the
Eliquis. patient has remained on IV cardizem all day.
--- NOTE | 2024-06-28 18:01 | CON.CAR ---
Consultation
Consultation Request
Requesting Provider: Mohsen
Performing Provider: Shade
Reason for Consultation: TIA/CVA
Medical History
-
Chief Complaint: Aphasia, weakness, facial droop
History of Present Illness:
Patient is a pleasant 53-year-old male with past medical history significant for alcohol use disorder, tobacco use disorder who presents following sudden onset left-sided facial droop, slurred speech/aphasia, right hand weakness with spontaneous
resolution. Patient reports that he was moving a pot of food in the kitchen when he noted sudden onset weakness and previously symptoms. Patient subsequently went to the emergency department for evaluation. At that time, patient was noted that
his symptoms had resolved. Neurology was consulted to rule out stroke. EKG demonstrated atrial fibrillation which is a new diagnosis for patient. Patient started on anticoagulation. In discussion with patient, he reports longstanding history of
palpitations which come and go. He reports continued tobacco use roughly 1/2 to 1 pack/day along with daily alcohol use. Patient states that he does not exercise. Patient reports no family history of heart disease.
Past Medical History
Past Medical History: None
Past Surgical History: None
Social History
Tobacco: Smoker
Alcohol: Daily
Drug: None
Personal:
Living: With Family
Employment: Employed
Family History
Family History: Reviewed & Not Pertinent
Allergies / Home Medications
Allergy/AdvReac Type Severity Reaction Status Date / Time
aspirin Allergy Hives Verified 06/27/24 18:25
�Medication �Instructions �Recorded �Confirmed �Type
No Meds [No Current Medications] 06/27/24 06/27/24 History
Review of Systems
-
History Source: Patient and Family
All other systems: Negative unless noted
Constitutional: No Symptoms
EENT: No Symptoms
Respiratory: No Symptoms
Cardiac: Palpitations
Abdomen/GI: No Symptoms
: No Symptoms
Musculoskeletal: No Symptoms
Skin: No Symptoms
Neurological: Weakness, Numbness and Other (Facial droop, aphasia)
Endocrine: No Symptoms
Hematologic/Lymphatic: No Symptoms
Physical Exam
Vital Signs
Temp Pulse Resp BP Pulse Ox
98.6 F 80 20 132/96 98
06/28/24 16:01 06/28/24 14:45 06/28/24 16:01 06/28/24 12:09 06/28/24 16:01
physical exam:
GENERAL: no acute distress
EYE: sclera anicteric
NECK: Supple, no JVD, no carotid bruit appreciated
ENT: normal nose, moist mucosal membranes
CARDIAC: Irregularly irregular, +S1/S2, no murmur, rubs, or gallops
CHEST/PULMONARY: Normal effort, clear breath sounds
ABDOMEN: Soft, without focal tenderness or distention
NEUROLOGICAL: Alert and oriented x3
SKIN: Warm and dry, no rash
PSYCH: Normal and appropriate interaction.
Lab Results
06/27/24 18:52
06/28/24 16:51
Glc-M-Yblpynggzwm Pept 831 pg/ml 06/28/24 16:51
Impression / Plan
-
PCP: None
Cardiology: None
Assessment:
TIA/CVA
� Reported left facial droop, right arm/hand weakness, slurred speech/aphasia, improved
� EKG AF
� No prior cardiac evaluation or testing
� Chronic alcohol and tobacco use
� CT brain/CTA head/CTA neck: No acute intracranial process, specifically, no evidence of acute hemorrhage. No significant arterial stenosis, no saccular aneurysm, no significant arterial stenosis.
� MRI pending
� Echo ordered
AF, unclear chronicity, symptomatic
� Noted symptoms of palpitations and elevated heart rate
� [id number]: 2 (TIA). Started on Eliquis 5 mg twice daily; previously on heparin gtt.
� Rate controlled with diltiazem gtt.
Alcohol use disorder
Tobacco use disorder
Recommendations:
� 2D echocardiogram to assess cardiac size, shape, function, valvular anatomy, and possible cardioembolic source. Plan for choice of rate controlling agent pending echocardiogram. If evidence of RV/LV dysfunction, would recommend beta-rosalind over
calcium channel rosalind
� Continue oral anticoagulation in the setting of AF and TIA; MRI pending
� Complete alcohol, tobacco cessation; likely sleep apnea testing as outpatient
� Lipid panel shows LDL 66; will likely benefit from statin for further reduction in LDL less than 55
� Monitor on telemetry
� Will follow
Data Reviewed
-
EKG: Tracing Personally Visualized and interpreted
Radiology: Report Reviewed by me
CT Scan: Report Reviewed by me
Medical Tests (Nuc Med, Echo etc): Report Reviewed by me
Labs: Labs Reviewed by me
[2024-06-28] MEDS: ELIQUIS 5 MG PO (20:04)
[2024-06-28] MEDS: THIAMINE INJECTION 200 MG IV (20:04)
--- NOTE | 2024-06-28 20:16 | PTCARENOTE ---
Pt. received at change of shift. Pt. seen and assessed in room. Pt. AOx3, no complaints at this time. Tele reading Afib in the 70s. MSAS and NIH scale completed and documented per protocol. This RN educated pt on the purpose of eliquis as patient
was hesitant to take it at first, but Afib education conducted. Pt. verbalizes understanding. Cardizem running at 5ml/hr, titrating per protocol. Call marks within reach. Continuing to monitor at this time.
[2024-06-29] VITALS (11 sets, daily range): BP systolic 128–167; BP diastolic 92–112; PULSE 102; O2SAT 99; BMI 29.2
[2024-06-29 04:20] LABS: Hematocrit 39.9 % (39.0-52.0); Hemoglobin 13.8 g/dL (13.0-18.0); Mean Corp Hgb Conc. 34.6 g/dL (33.0-37.0); Mean Platelet Volume 10.5 fL (7.4-10.4); Platelet Count 209 10^3/uL (130-400); Red Blood Cell Count 3.73 10^6/uL (4.70-6.10); Red Cell Dist. Width 11.7 % (11.5-14.5); White Blood Cell Count 5.4 10^3/uL (4.8-10.8)
[2024-06-29] MEDS: ELIQUIS 5 MG PO ×2 (08:20→20:54)
[2024-06-29] MEDS: FOLVITE 1 MG PO (08:20)
[2024-06-29] MEDS: THIAMINE INJECTION IV ×3 (08:21→20:55)
--- NOTE | 2024-06-29 09:15 | PTOTSP ---
Speech Language Pathology
Pt participated in partial cognitive-linguistic evaluation via the [place] Cognitive Assessment (MOCA). Pt did not want to participate, but encouraged participation. He answered a few questions, but then stated 'I think we're done here,
right?' Pt with quick completion of tasks. Unsure if this was related to impulsivity or pt trying to show ATOMIC SPECTROSCOPIST he was fine. No difficulty with visuospatial subtest with self-correction on trail making task. No difficulty naming 3 animals or with
orientation questions. 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
ATOMIC SPECTROSCOPIST to sign off secondary to pt refusal. Please reconsult as indicated.
[2024-06-29] MEDS: CARDIZEM CD 180 MG PO (09:45)
--- NOTE | 2024-06-29 10:54 | W.PN.HOSP.TC ---
Addendum entered and electronically signed by Wilber Oshea MD 06/29/24 20:59:
Attending Addendum-
I saw and evaluated the patient. I reviewed the resident�s note and agree with findings and plan as documented in the resident�s note. Sub: Seen with present. 'I feel completely fine i wanna go home.' No neuro deficits. Denies CP palps. Full 12
point ROS reviewed and negative except as documented Exam: Vitals reviewed in chart GEN-NAD heart irreg irreg lungs clear abd soft LE deidre amada Neuro AAO x 3 MS 11/16 no cerebellar deficits no droop
# New onset A-fib with RVR
- still in a fib
- may benefit from VICENTE CV if sxs persist
- transition to po Cardizem today
- check TTE 06/29
- Cardiology on board
- transitioned from hep gtt to eliquis
# Acute CVA
- likley embolic from a fib
- left parietal lobe- sxs support location and acuity
- cont lipitor PT OT speech therapy
- GDMT- achieve normotensive- add meds
- neuro on board
# Acute kidney injury
- monitor BMP
# Transaminitis likely from alcohol abuse
- repeat LFT in am
# SONALI/Alcohol dependence
-Monitor MSAS- today 2
-advised to quit and seek help
- add folic and thiamine
# Tobacco Abuse
- advised to quit
- offered lj patch
# DVT prophylaxis
- eliquis
# CODE STATUS
-Full code
Time spent coordinating care, review of plan of care with resident, personally reviewed records in EMR, med rec, consults, notes, labs, radiology, d/w , nursing, cards � 58 mins
Original Note:
Today's Communication/Plan
-
Patient awaiting Echocardiogram. Will continue Eliquis and await Neuro consult to go over MRI.
Assessment / Plan
Assessment / Plan
Assessment: 53 year old male comes to the hospital for evaluation of heart palpatations and TIA symptoms. Patient had weakness in his right side and left sided facial drooping. Patient was diagnosed with A-Fib with RVR and TIA
Plan:
#CVA
-CT brain Negative
-MRI- Small focus of acute to subacute infarction involving the left parietal lobe postcentral gyrus, laterally.
Small focus of moderate increased diffusion-weighted signal within the white matter of the right frontal lobe. As described above, this is felt to most likely represent T2 shine through from a focus of small vessel ischemic change. A small focus of
acute to subacute infarction is a differential consideration, and please correlate with any symptoms that could be related to a right-sided white matter infarct.
-Possibly secondary to A-Fib
-Neurology consulted
-PT/PT/ST evaluation was refused by patient
-Continue Atorvastatin
#A-Fib with RVR
-Asymptomatic overnight, no new instance of heart palpitations
-Patient switched from IV Diltiazem to Oral
-Thyroid/Lipids within normal range
-Patient refused CMP this morning
-Continue Eliquis 5mg BID
-Echo today, can look into discharging patient if cleared by Cardio
#Alcohol Use Disorder
-Patient refused thiamine this morning due to not having alcohol withdrawal symptoms
-B12 and Folate levels were within normal range
-Continue MSAS protocol for now
#RIVER
-Resolved
-Creatinine stable at 0.9
-Probable was secondary to hypovolemia from alcohol use disorder
-IVF were discontinued
Full Code, DVT Prophylaxis: Eliquis
Anticipated Discharge: 24 - 48 hours
Subjective/Interval History
-
Date of Service: June 29, 2024
Patient has been feeling well overnight. No complaints, and has had no instances of heart palpitations or chest pain. Patient refused to take Thiamine as he says he has no alcohol withdrawal symptoms. He is very much looking forward to get out of
the hospital as quickly as possible. Patient reports he has had no instances of weakness or facial drooping.
Objective Data
-
Labs:
Laboratory Results
06/29/24 06/29/24
03:56 07:29
WBC 5.4
Hgb 13.8
Hct 39.9
Plt Count 209
Sodium Pending
Potassium Pending
Chloride Pending
Carbon Dioxide Pending
BUN Pending
Creatinine Pending
Glucose Pending
Calcium Pending
Total Bilirubin Pending
AST Pending
ALT Pending
Alkaline Phosphatase Pending
Vital Signs:
Vital Signs
Temp Pulse Resp BP Pulse Ox
97.9 F 92 20 142/105 97
06/29/24 07:52 06/29/24 05:45 06/29/24 07:52 06/29/24 03:49 06/29/24 07:52
I&O
06/28/24 06/29/24 06/30/24
06:59 06:59 06:59
Intake Total 1407 / 1407
Balance 1407 / 1407
Review of Systems
-
History Source: Patient
Constitutional: Reports No Symptoms
EENT: Reports No Symptoms Reported
Respiratory: Reports No Symptoms
Cardiac: Denies Chest Pain or Palpitations
Abdomen/GI: Reports No Symptoms
Genitourinary: Reports No Symptoms
Musculoskeletal: Reports No Symptoms
Skin: Reports No Symptoms
Neuro: Denies Dizzy, Headache, Weakness, Numbness or Ataxia
Physical Exam
-
General: Well Developed, Well Nourished, No Apparent Distress and Comfortable
Respiratory: Clear to Auscultation and Non Labored Respirations
Cardiac: Regular Rhythm and S1/S2
GI: Soft, Nontender and Nondistended
Musculoskeletal: No Clubbing, No Cyanosis and No Edema
Skin: Warm and Dry
Neuro: Awake, Alert, Oriented, AO x 3, No Motor Deficits and No Sensory Deficits
Psych: Calm
Data Reviewed
-
MRI: Report Reviewed by me, Discussed with Physician and Discussed with Patient
Labs: Labs Reviewed by me, Discussed with Physician and Discussed with Patient
--- NOTE | 2024-06-29 10:57 | PTCARENOTE ---
Pt refused IV Thiamine this morning. Explained reason for giving med, but he still didn't want it. He is hoping to go home today. He asked if he could leave the floor to go to the cafeteria for coffee, he was instructed not to leave the unit
otherwise we would not be able to monitor him, Pt agreeable.
--- NOTE | 2024-06-29 12:23 | W.PN.NEURO.1 ---
Today's Communication / Plan
-
.
Subjective/Objective
Subjective Data
Date of Service: June 29, 2024
Neurology follow-up note.
24-hour events: Intermittently hypertensive up to 142/105, afebrile.
Telemetry�A-fib, rate controlled.
Labs: Normal TSH, vitamin B12
Mr. Layne states that the numbness in R IV digit has improved since yesterday. No reports of headaches, change in vision, strength or imbalance.
Brain MRI showed an acute small left MCA territory (postcentral gyrus) infarct.
TTE-pending.
The patient was transitioned to [facility] yesterday.
PMH: no prior medical care, nicotine/ EtOH addiction,
PSH: none
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
FH: Mother from lung cancer, father from 'lymphocytic cancer.
All: Aspirin�angioedema.
ROS:Constitutional: Negative. Negative for chills, fever and unexpected weight change.
HENT: Negative for ear pain, hearing loss, tinnitus and trouble swallowing.
Eyes: Negative. Negative for photophobia, pain and visual disturbance.
Respiratory: Negative for cough, choking and shortness of breath.
Cardiovascular: Positive for palpitations
Gastrointestinal: Negative for abdominal pain and vomiting.
Endocrine: Negative. Negative for cold intolerance.
Genitourinary: Negative for dysuria, flank pain and urgency.
Musculoskeletal: Negative for back pain, gait problem, neck pain and neck stiffness.
Skin: Negative for rash.
Allergic/Immunologic: Negative. Negative for immunocompromised state.
Neurological: Positive for right 3�4 digit numbness.
Psychiatric/Behavioral: Negative for behavioral problems, confusion and hallucinations.
General: Well developed. In no acute distress.
Cardio: Regular rate and rhythm without murmur. Extremities are without cyanosis or edema.
Neuro:
Mental Status: Alert, oriented to person, place, and date. Normal attention and recall. Good fund of knowledge. Follows complex requests.
Cranial Nerves: . are equally round and reactive to light. EOMs full. Visual kasper full to confrontation. No ptosis. No nystagmus. V1-V3 intact to light touch and pinprick bilaterally, symmetric. Face symmetric. Normal hearing AU. The
palate elevated well. SCMs and traps 5/5. Tongue midline. No dysarthria.
Motor: Normal bulk and tone. No pronator or arm drift. Strength 5/5 throughout. No clonus.
Coordination: No dysmetria or tremor.
Gait: deferred
Assessment and Plan:
I. Left MCA cortical stroke, likely etiology�embolic.
II. New onset of A-fib with RVR.
III. ETOH and nicotine addiction.
IV. Frontop/temporal atrophy.
-Continue Telemetry monitoring.
-Follow-up transthoracic echo
-Continue Eliquis 5 mg twice daily for secondary stroke prevention.
-Outpatient neurology follow-up in 1-2 weeks
-DVT prophylaxis.
I personally reviewed all radiology and labs along with past medical records pertinent to current medical problems. Total time spent in patient care is 35 minutes.
Thank you for allowing us to participate in the care of this patient. We will continue to follow. Please do not hesitate to contact us with any questions or concerns.
Objective Data
Vital Signs
Temp Pulse Resp BP Pulse Ox
36.5 C 92 18 142/105 100
06/29/24 11:51 06/29/24 05:45 06/29/24 11:51 06/29/24 03:49 06/29/24 11:51
Lab Results
06/29/24 03:56
PT 13.1 Sec (11.4-14.6) 06/27/24 18:52
INR 0.96 06/27/24 18:52
APTT Cancelled 06/28/24 20:30
Sodium 139 mmol/L (135-145) 06/28/24 16:51
Potassium 4.0 mmol/L (3.5-5.1) 06/28/24 16:51
BUN 19 mg/dl (9-20) 06/28/24 16:51
Glucose 103 mg/dl (70-99) H 06/28/24 16:51
Calcium 9.2 mg/dl (8.4-10.2) 06/28/24 16:51
Phosphorus 3.3 mg/dl (2.5-4.5) 06/27/24 23:52
Xhs-D-Wgqqtgqlzav Pept 831 pg/ml 06/28/24 16:51
LDL Cholesterol, Calc 66 mg/dl 06/28/24 05:52
Vitamin B12 641 pg/ml (239-931) 06/28/24 05:52
Ur Buprenorphine Negative (Negative) 06/28/24 00:49
Patient Allergies
aspirin Allergy (Verified 06/27/24 18:25)
Hives
Vital Signs and Labs
-
Vital Signs and Labs:
Vital Signs
Temp Pulse Resp BP Pulse Ox
36.5 C 92 18 142/105 100
06/29/24 11:51 06/29/24 05:45 06/29/24 11:51 06/29/24 03:49 06/29/24 11:51
Lab Results
06/29/24 03:56
PT 13.1 Sec (11.4-14.6) 06/27/24 18:52
INR 0.96 06/27/24 18:52
APTT Cancelled 06/28/24 20:30
Sodium 139 mmol/L (135-145) 06/28/24 16:51
Potassium 4.0 mmol/L (3.5-5.1) 06/28/24 16:51
BUN 19 mg/dl (9-20) 06/28/24 16:51
Glucose 103 mg/dl (70-99) H 06/28/24 16:51
Calcium 9.2 mg/dl (8.4-10.2) 06/28/24 16:51
Phosphorus 3.3 mg/dl (2.5-4.5) 06/27/24 23:52
Xbk-D-Aofloymfvbg Pept 831 pg/ml 06/28/24 16:51
LDL Cholesterol, Calc 66 mg/dl 06/28/24 05:52
Vitamin B12 641 pg/ml (314-211) 06/28/24 05:52
Ur Buprenorphine Negative (Negative) 06/28/24 00:49
Medications
-
Medications:
Generic Name Dose Route Start Last Admin
Trade Name Freq PRN Reason Stop Dose Admin
Acetaminophen 650 mg 06/27/24 23:24
Acetaminophen 650 Mg Rectal Suppository RECTAL 07/25/24 23:23
Q4HPRN PRN
CHANCE, mild pain, or temp >100.4F
Acetaminophen 650 mg 06/27/24 23:24
Acetaminophen 325 Mg Tablet PO 07/25/24 23:23
Q4HPRN PRN
CHANCE, mild pain, or temp >100.4F
Apixaban 5 mg 06/28/24 21:00 06/29/24 08:20
Apixaban (Eliquis) 5 Mg Tablet PO 07/26/24 20:59 5 mg
BID ALIDA Administration
Atorvastatin Calcium 40 mg 06/27/24 23:24 06/28/24 18:00
Atorvastatin (Lipitor) 40 Mg Tablet PO 07/25/24 23:23 Not Given
QPM ALIDA
Diltiazem HCl 180 mg 06/30/24 08:00
Diltiazem 180 Mg Extended Release (24 H) Capsule PO 07/28/24 07:59
DAILY ALIDA
Folic Acid 1 mg 06/28/24 08:00 06/29/24 08:20
Folic Acid 1 Mg Tablet PO 07/26/24 07:59 1 mg
DAILY ALIDA Administration
Folic Acid 1 mg/ Sodium 50.2 mls @ 200.8 mls/hr 06/27/24 23:24
Chloride IV 07/25/24 23:23
DAILYPRN PRN
if NPO
Lorazepam 1 mg 06/27/24 23:24
Lorazepam 1 Mg Tablet PO 07/25/24 23:23
Q2HPRN PRN
MSAS 5-7
Lorazepam 1 mg 06/27/24 23:24
Lorazepam 2 Mg/Ml Vial IV 07/25/24 23:23
Q1HPRN PRN
MSAS 8-11
Lorazepam 2 mg 06/27/24 23:24
Lorazepam 2 Mg/Ml Vial IV 07/25/24 23:23
Q1HPRN PRN
MSAS > 11
Sodium Chloride 0 ml 06/27/24 23:24
Sodium Chloride 0.9% (Preservative Free) 10 Ml Vial IV 07/25/24 23:23
PRN PRN
To dilute IV Ativan
Protocol
Sodium Chloride 0 flush 06/28/24 02:00
Sodium Chloride 0.9% (Flush) Syringe IV 07/26/24 01:59
PER PROTOCOL ALIDA
Thiamine HCl 200 mg 06/28/24 08:00 06/29/24 08:26
Thiamine (100 Mg/Ml) 2 Ml Vial IV 06/30/24 20:01 Not Given
Q12 ALIDA
Thiamine HCl 100 mg 07/01/24 08:00
Thiamine 100 Mg Tablet PO 07/29/24 07:59
BID ALIDA
Home Medications
-
Home Medications
No Meds [No Current Medications] 06/27/24
[2024-06-29] MEDS: COREG 6.25 MG PO ×2 (13:40→20:55)
[2024-06-29] MEDS: ENTRESTO 24 MG/26 MG 1 TAB PO ×2 (13:41→20:55)
--- NOTE | 2024-06-29 13:52 | W.PN.CARDCBS ---
Today's Communication / Plan
-
Severe LV dysfunction.
Change diltiazem to carvedilol 6.25 mg twice daily
Add Entresto 24/26 mg twice daily
Eventually add SGLT2 inhibitor
Eventually consider Aldactone although no congestive symptoms and want to make sure that patient demonstrates compliance.
He must stop alcohol which we discussed
Ischemic assessment he will undergo Lexiscan nuclear stress test.
Plan for VICENTE cardioversion this admission.
Impression / Plan
-
PCP: None
Cardiology: None
Echo 06/29/2024 left ventricle is mildly dilated. LVEF 25-30%. Normal RV. Moderate mitral regurgitation. Mild tricuspid regurgitation. Estimated pulmonary artery pressure of 35-40 mmHg.
Assessment:
TIA/CVA
� Reported left facial droop, right arm/hand weakness, slurred speech/aphasia, improved
� EKG AF, unclear duration
� No prior cardiac evaluation or testing
� Chronic alcohol and tobacco use
� CT brain/CTA head/CTA neck: No acute intracranial process, specifically, no evidence of acute hemorrhage. No significant arterial stenosis, no saccular aneurysm, no significant arterial stenosis.
� MRI Small focus of acute to subacute infarction involving the left parietal lobe postcentral gyrus, laterally. No arterial abnormalities by MRA of the head and neck.
-Lipid-lowering
Heart failure with reduced ejection fraction
-New diagnosis today with ejection fraction 25 to 30% and global hypokinesis. Discussed with patient and his at the bedside.
-Heart failure team consult
-Change diltiazem to carvedilol 6.25 mg twice daily and uptitrate to maximum tolerated dose.
-Add Entresto 24/26 mg twice daily and uptitrate to maximal tolerated dose.
-Eventually add SGLT2 inhibitor
-Eventually consider Aldactone although no congestive symptoms and want to make sure that patient demonstrates compliance.
I discussed with the patient at great length that heart failure with reduced ejection fraction could be in part related to atrial fibrillation with rapid rates of unknown duration, alcohol use, no clear family history of cardiomyopathy. Cannot
exclude coronary artery disease.
-He must stop alcohol which we discussed
-Ischemic assessment he will undergo Lexiscan nuclear stress test.
-Plan for VICENTE cardioversion this admission. I feel that zoroastrian of sinus rhythm is important to give the patient best chance at recovery of left ventricular ejection fraction.
-Reassess echocardiogram on guideline directed medical therapy at the 90-day vanesa to assess risk of sudden cardiac .
AF, unclear chronicity, symptomatic
� Noted symptoms of palpitations and elevated heart rate
� [id number]: 2 (TIA). Started on Eliquis 5 mg twice daily; previously on heparin gtt.
� Rate controlled with diltiazem gtt. now switched to carvedilol given cardiomyopathy.
-VICENTE cardioversion this admission.
Alcohol use disorder
-Stop alcohol use
Tobacco use disorder
-Stop tobacco use
Discussed above at length with the patient and his all questions answered.
Progress Note - Tenterer
Subjective
Date of Service: June 29, 2024
He denies chest pain and palpitations no further neurologic symptoms.
Objective
Labs:
06/29/24 03:56
Labs
Hgb 13.8 g/dL (13.0-18.0) 06/29/24 03:56
Hct 39.9 % (39.0-52.0) 06/29/24 03:56
Plt Count 209 10^3/uL (130-400) 06/29/24 03:56
PT 13.1 Sec (11.4-14.6) 06/27/24 18:52
INR 0.96 06/27/24 18:52
APTT Cancelled 06/28/24 20:30
Sodium 139 mmol/L (135-145) 06/28/24 16:51
Potassium 4.0 mmol/L (3.5-5.1) 06/28/24 16:51
BUN 19 mg/dl (9-20) 06/28/24 16:51
Creatinine 0.9 mg/dL (0.7-1.3) 06/28/24 16:51
Glucose 103 mg/dl (70-99) H 06/28/24 16:51
Vital Signs and I&O:
Vital Signs
Temp Pulse Resp BP Pulse Ox
97.7 F 92 18 142/105 100
06/29/24 11:51 06/29/24 05:45 06/29/24 11:51 06/29/24 03:49 06/29/24 11:51
Vital Signs
Temp Pulse Resp BP Pulse Ox
97.7 F 92 18 142/105 100
06/29/24 11:51 06/29/24 05:45 06/29/24 11:51 06/29/24 03:49 06/29/24 11:51
Intake & Output
06/27/24 06/28/24 06/29/24 06/30/24
06:59 06:59 06:59 06:59
Intake Total 1407 / 1407
Balance 1407 / 1407
Physical Exam
Physical Exam
General: Well developed, well nourished in NAD.
Neck: Supple, no JVD, HJR, carotids +2 B/L, no bruits bilaterally.
Heart: Non displaced PMI, RRR, no murmurs, No S3, S4, no rubs.
Lungs: Clear to auscultation bilaterally, no wheeze, rhonchi, rubs bilaterally,
normal expiratory phase.
Extremities: No clubbing, cyanosis or edema bilaterally.
Neuro: Grossly nonfocal, awake, alert and oriented x3.
--- NOTE | 2024-06-29 14:17 | CARDSERVLU ---
Echocardiogram with Lumason completed after protocol screening completed. Allergies verified.
Patent IV site: _L forearm____
IV site flushed with 0.9% NaCl pre and post administration.
Diluted bolus method utilized to enhance visualization of ventricular sanchez.
Total volume given: __4__ mL
Patient tolerated all procedures well without complications.
--- NOTE | 2024-06-29 14:52 | CM ---
Reviewed chart. Met with Mr. Layne to review discharge plans. He states prior to he resides with his spouse in a two story home with two steps to enter. He states he has a full flight of steps to get to bedroom/full bathroom. He states he has a
powder room on the first floor. He states he does not have any DME in the home. He states he has a prescription plans. Telephone call to [employer] to check on coverage for Eliquis 5 mg po bid. He has a $6000.00 deductible that
includes medical and pharmacy. He Eliquis cost would be $353.52 a month until he met his out of pocket cost. Then his co-pay would be 50 percent of the cost. He has a commercial insurance so he can use the $10.00 a month coupon. Placed the
Eliquis coupon in his red discharge folder. Reviewed with him if he wanted resources on substances abuse counseling. He states he is going to try to stop on his own. At this time he is declining resource information. Medical work-up in progress.
The discharge plan is to return home with his spouse when medically stable.
--- NOTE | 2024-06-29 17:09 | W.PN.UPDATE ---
Update Note
Progress Note Update
Echocardiogram showed Severely reduced left ventricular systolic function. Left ventricular ejection fraction is 30% by Smith's method. Global hypokinesis. Mild concentric left ventricular hypertrophy. Stage I diastolic dysfunction suggestive of
abnormal relaxation.
Cardiology changed diltiazem to Carvedilol 6.25 BID, Added Entresto 24/26mg daily, and are planning for Lexiscan nuclear stress test and VICENTE cardioversion this admission.
Neurology saw patient and recommended to continue Eliquis 5 mg twice daily for secondary stroke prevention and follow up with outpatient neurology in 1-2 weeks
[2024-06-29] MEDS: LIPITOR 40 MG PO (18:36)
[2024-06-29 22:13] LABS: ALT (SGPT) 76 U/L (0-50); AST (SGOT) 52 U/L (17-59); Albumin 4.8 g/dl (3.5-5.0); Alkaline Phosphatase 66 U/L (38-126); Blood Urea Nitrogen 14 mg/dl (9-20); Calcium 9.9 mg/dl (8.4-10.2); Carbon Dioxide 26 mmol/L (22-30); Chloride 102 mmol/L (98-107); Estimated Creatinine Clearance 110 ml/min; Glucose 103 mg/dl (70-99); Potassium 3.9 mmol/L (3.5-5.1); Sodium 138 mmol/L (135-145); Total Bilirubin 1.1 mg/dl (0.2-1.3); Total Protein 7.5 g/dl (6.3-8.2); eGFR > 60.00
[2024-06-30] VITALS (9 sets, daily range): BP systolic 127–151; BP diastolic 85–133; BMI 27.7
--- NOTE | 2024-06-30 04:52 | PTCARENOTE ---
Pt received at change of shift. Afib on tele with HR 80s-90s. HR up to 120s with ambulation. NIH and MSAS assessed and documented per protocol. Neuro intact. No complaints of pain at this time. Pt agreeable to take all PO medications but
refused IV Thiamine injection despite education. Bloodwork ordered at 2151, pt hesitant but agreeable after education. Labs collected and sent per orders. Ambulating independently in room without difficulty. Can make needs known. Call marks
within reach.
[2024-06-30] MEDS: ELIQUIS 5 MG PO ×2 (07:25→20:49)
[2024-06-30] MEDS: ENTRESTO 24 MG/26 MG 1 TAB PO ×2 (07:25→20:50)
--- NOTE | 2024-06-30 08:58 | PTCARENOTE ---
Patient is aaox3, vss, 97% on RA. Rapid Afib is noted on the monitor with a HR of 127. He has no complaints. He is ambulatory in his room.
--- NOTE | 2024-06-30 10:25 | W.PN.HOSP.TC ---
Addendum entered and electronically signed by Wilber Oshea MD 06/30/24 21:25:
Attending Addendum-
I saw and evaluated the patient. I reviewed the resident�s note and agree with findings and plan as documented in the resident�s note. Sub: Seen with present. seen post stress test. got sob during test. no CP palps. No neuro deficits. Full 12
point ROS reviewed and negative except as documented Exam: Vitals reviewed in chart GEN-NAD heart irreg irreg lungs clear abd soft LE no edema Neuro AAO x 3 MS 11/16 no cerebellar deficits no droop
# New onset A-fib with RVR
- rates better controlled
- possible VICENTE CV as OP
- uptitrate coreg
- TTE 06/29-Severely reduced left ventricular systolic function. Left ventricular ejection fraction is 30% by Smith's method. Global
hypokinesis.
- Cardiology on board
- cont eliquis
# Severe Ischemic Cardiomyopathy- new
- lexiscan stress 06/30-Perfusion imaging reveals a moderate in size, mild in severity partially reversible mid to distal anterior perfusion defect. This could represent a small amount of anterior ischemia. There is also a small basal to mid
inferior perfusion defect which improves with prone imaging. Global hypokinesis with EF 22%
- cont entresto, uptitrate coreg
- add Aldactone
- add sglt2 as OP
- ok for cath as OP
# Acute CVA
- likely embolic from a fib
- left parietal lobe- sxs support location and acuity
- cont lipitor PT OT speech therapy
- GDMT
- neuro on board
# Acute kidney injury
- monitor BMP
- resolved
# Transaminitis likely from alcohol abuse
- stable
- f/u as OP
- ETOH cessation
# SONALI/Alcohol dependence
-Monitor MSAS
-no signs of W/D
-advised to quit and seek help
-cont folic and thiamine
# Tobacco Abuse
- advised to quit
- offered lj patch
# DVT prophylaxis
- eliquis
# CODE STATUS
-Full code
Dispo DC in am
Time spent coordinating care, review of plan of care with resident, personally reviewed records in EMR, med rec, consults, notes, labs, radiology, d/w , nursing, cards � 59 mins
Original Note:
Today's Communication/Plan
-
Patient to get Cardiac Stress Testing and VICENTE still needs to be scheduled. Will monitor for any changes in rhythm
Assessment / Plan
Assessment / Plan
Assessment: 53 year old male comes to the hospital for evaluation of heart palpatations and TIA symptoms. Patient had weakness in his right side and left sided facial drooping. Patient was diagnosed with A-Fib with RVR and TIA and currently
undergoing further cardiac testing.
Plan:
#CVA
-CT brain Negative
-MRI- Small focus of acute to subacute infarction involving the left parietal lobe postcentral gyrus, laterally.
Small focus of moderate increased diffusion-weighted signal within the white matter of the right frontal lobe. As described above, this is felt to most likely represent T2 shine through from a focus of small vessel ischemic change. A small focus of
acute to subacute infarction is a differential consideration, and please correlate with any symptoms that could be related to a right-sided white matter infarct.
-Possibly secondary to A-Fib
-Neurology consulted
-PT/PT/ST evaluation was refused by patient
-Continue Atorvastatin
-Continue Eliquis 5mg BID as per Neuro
#A-Fib with RVR
-Asymptomatic overnight, no new instance of heart palpitations
-Thyroid/Lipids within normal range
-Echocardiogram (06/29/2024) showed Severely reduced left ventricular systolic function. Left ventricular ejection fraction is 30% by Smith's method. Global hypokinesis. Mild concentric left ventricular hypertrophy. Stage I diastolic dysfunction
suggestive of abnormal relaxation.
-Patient underwent Stress testing today. Scheduled for VICENTE this admission.
-Cardiology input appreciated
-Diltiazem changed to Carvedilol 6.25 BID
-Added Entresto 24/26mg daily
-Planned to add SGLT2 Inhibitor and Aldactone in the future
#Alcohol Use Disorder
-B12 and Folate levels were within normal range
-Continue MSAS protocol for now
-Stressed importance of Alcohol Cessation
#RIVER
-Resolved
-Creatinine stable at 0.9
-Probable was secondary to hypovolemia from alcohol use disorder
-IVF were discontinued
#Tobacco use disorder
-Tobacco cessation discussed
Full Code, DVT Prophylaxis: Eliquis
Anticipated Discharge: 24 - 48 hours
Subjective/Interval History
-
Date of Service: June 30, 2024
Patient has been feeling well. Had no concerns or overnight events. He is a bit frustrated about having to stay in the hospital but overall is feeling well.
Objective Data
-
Vital Signs:
Vital Signs
Temp Pulse Resp BP Pulse Ox
97.8 F 83 18 127/95 99
06/30/24 07:17 06/30/24 07:19 06/30/24 07:17 06/30/24 07:19 06/30/24 07:17
I&O
06/29/24 06/30/24 07/01/24
06:59 06:59 06:59
Intake Total 1407 / 1407
Balance 1407 / 1407
Review of Systems
-
History Source: Patient
Constitutional: Reports No Symptoms
EENT: Reports No Symptoms Reported
Respiratory: Denies Cough, Trouble Breathing or Wheezing
Cardiac: Denies Chest Pain, Diaphoresis, Palpitations or Syncope
Abdomen/GI: Denies Abdominal Pain, Nausea or Vomiting
Genitourinary: Reports No Symptoms
Musculoskeletal: Reports No Symptoms
Skin: Reports No Symptoms
Neuro: Denies Headache, Weakness, Numbness or Lightheadedness
Endocrine: Reports No Symptoms
Hematologic / Lymphatic: Reports No Symptoms
Allergy / Immunology: Reports No Symptoms
Physical Exam
-
General: Well Developed, Well Nourished, No Apparent Distress and Comfortable
HEENT: Normocephalic and Atraumatic
Respiratory: Clear to Auscultation and Non Labored Respirations
Cardiac: Regular Rhythm and S1/S2
GI: Soft, Nontender and Nondistended
Musculoskeletal: No Clubbing, No Cyanosis and No Edema
Skin: Warm and Dry
Neuro: Awake, Alert, Oriented and AO x 3
Psych: Calm
Data Reviewed
-
Diagnostic Radiology: Report Reviewed by me, Discussed with Physician and Discussed with Patient
Labs: Labs Reviewed by me, Discussed with Physician and Discussed with Patient
--- NOTE | 2024-06-30 10:59 | PTCARENOTE ---
While the patient was being wheeled down the hallway to take him to his room post stress test, the patient jump off the stretcher while the stretcher was moving at raised in a high position. I explained to the patient that that was dangerous and
could have gotten himself and the volunteer injured. He stated 'that's why I have insurance.'
[2024-06-30] MEDS: COREG 6.25 MG PO (11:11)
[2024-06-30] MEDS: FOLVITE 1 MG PO (11:11)
[2024-06-30] MEDS: THIAMINE INJECTION IV ×2 (11:12→20:39)
--- NOTE | 2024-06-30 11:25 | PTCARENOTE ---
I had a long discussion with the patient and his . I explained to them all about Afib and the risks for stroke. In addition, I did some extensive teaching about heart failure, his ejection facture, and the medications that he is now taking for
it. I introduced them to the Heart Failure packet and encouraged them to read over it and watch the videos assigned to him.
[2024-06-30] MEDS: LOPRESSOR 5 MG IV (11:38)
[2024-06-30] MEDS: FLUSH (NSS) 2 FLUSH IV (11:39)
--- NOTE | 2024-06-30 11:42 | PTCARENOTE ---
The patient's HR was up as high as the 170s. Notified Divya Mariee and Susy Herrera. Metoprolol 5mg IV was ordered and given.
I did find the patient drinking coffee when I went in to medicate him with the Metoprolol and asked to stop drinking it as it can increase his HR. He complied.
--- NOTE | 2024-06-30 13:15 | W.PN.CARDCBS ---
Addendum entered and electronically signed by Jorge Amaral MD 06/30/24 14:20:
I saw and examined the patient.
The Freelance Patternmaker's note was reviewed and I agree with the note.
Comment:
GEN: No distress, awake, Ox3
HEENT: supple, anicteric, mmm
LUNGS: CTA, no wheezes/rales
CV: Irreg, S1/S2, 1/6 syst LSB, no gallop
ABD: soft, BS+, NT/ND
EXT: No edema
NEURO: Gross non-focal
SKIN: No rash
Plan:
This is a difficult case. He now has an acute CVA by MRI. This is likely in the setting of embolism from his atrial fibrillation.
Exercise nuclear stress test today reveals a moderate, mildly reversible anterior perfusion defect and a mild predominantly fixed inferior perfusion defect. EF 22%.
We discussed management at length today. He does need a cardiac catheterization but in the setting of an acute CVA and not having chest pain we will likely treat him conservatively for now. Check troponin.
At this point I would likely let him recover from his CVA and planned a rate control strategy. We will increase his carvedilol, continue his Entresto, and Aldactone.
If his rates are difficult to control we would also consider adding amiodarone for short period of time. I would pursue a rate control strategy for now. Will check on cost of Farxiga.
Clinically if he feels well with controlled rates he could potentially be discharged in a.m. with close follow-up with cardiology. As an outpatient we would then schedule cardiac cath and likely VICENTE cardioversion.
I discussed this at length with him and his .
Original Note:
Today's Communication / Plan
-
Uptitrate Coreg to 12.5 mg twice a day
Continue Entresto and Eliquis
Hold on cardioversion or cardiac catheterization can be discussed as outpatient
MSAS protocol
Impression / Plan
-
PCP: None
Cardiology: None, Initial consult Dr Laguerre
Echo 06/29/2024 left ventricle is mildly dilated. LVEF 25-30%. Normal RV. Moderate mitral regurgitation. Mild tricuspid regurgitation. Estimated pulmonary artery pressure of 35-40 mmHg.
Impression:
Presented 06/27/2024 with Aphasia, right sided weakness, facial droop
Acute to subacute left parietal stroke
RIVER, resolved
Abnormal LFTs
Paroxysmal atrial fibrillation w/ RVR, new diagnosis
Cardiomyopathy, new diagnosis
Heart failure with reduced ejections fraction
Alcohol use disorder
Tobacco use disorder
Echo with Definity 06/29/2024: EF 30%, global hypokinesis, mild concentric LVH. Stage I DD. Moderate MR. Mild TR. RVSP 35 to 40 mmHg.
Lexiscan nuclear stress test 06/30/2024: moderate in size, mild in severity partially reversible mid to distal anterior perfusion defect. This could represent a small amount of anterior ischemia. There is also a small basal to mid inferior perfusion
defect which improves with prone imaging. He inferior defect likely represents attenuation.
Plan:
Presented 06/27/2024 with Aphasia, right sided weakness, facial droop and found to have new acute to subacute left parietal stroke on MRI
-Stroke symptoms have improved/resolved.
-Suspect cardioembolic secondary to atrial fibrillation of unknown duration
-Stable from neurology standpoint for anticoagulation, continue Eliquis 5 mg twice a day
-Prestatin lipids TC 160, HDL 82, LDL 66, triglycerides 60; now on atorvastatin 40 mg
Heart failure with reduced ejection fraction
-New diagnosis this admission with ejection fraction 25 to 30% and global hypokinesis.
-Patient's weight down 11 pounds overnight if scale correct. Notes improvement of symptoms.
-New to Coreg this admission. Blood pressure will allow for up titration increase to 12.5 mg twice a day and uptitrate to maximum tolerated dose.
-Patient has $6000 deductible that includes medical and pharmacy. Can utilize co-pay card for Eliquis. Patient is agreeable to pay [id number] which would be approximately $571 for Entresto 24/26 mg twice daily.
-Eventually add SGLT2 inhibitor
-Eventually consider Aldactone although no congestive symptoms and want to make sure that patient demonstrates compliance.
-Underwent Lexiscan nuclear stress test which demonstrates mild partially reverse serviceable defect in mid to distal anterior segment. Cannot rule out ischemia. I discussed proceeding with heart catheterization however patient declines. Will
continue medical management with consideration of eventual catheterization if EF does not improve.
-Discussed with the patient at great length that heart failure with reduced ejection fraction could be in part related to atrial fibrillation with rapid rates of unknown duration, alcohol use, no clear family history of cardiomyopathy. Cannot
exclude coronary artery disease.
-He must stop alcohol which we discussed
-Reassess echocardiogram on guideline directed medical therapy at the 90-day vanesa to assess risk of sudden cardiac .
AF, unclear chronicity, symptomatic
� Noted symptoms of palpitations and elevated heart rate
� [id number]: 2-3 (stroke, likely HTN). Started on Eliquis 5 mg twice daily. Will utilize co-pay card as patient has commercial insurance
� Rate controlled with Carvedilol given cardiomyopathy. Increase Coreg to 12.5 mg twice a day.
-Discussed VICENTE/cardioversion this admission. However once again patient somewhat reluctant to undergo VICENTE/cardioversion. Despite conversation that anglican of sinus rhythm is important to give the patient best chance at recovery of left
ventricular ejection fraction. Will consider VICENTE cardioversion as outpatient in follow up.
Alcohol use disorder
-Stop alcohol use
-[facility] protocol
Tobacco use disorder
-Stop tobacco use
Discussed above at length with the patient and his all questions answered.
HPI 06/29/2024:
Patient is a pleasant 53-year-old male with past medical history significant for alcohol use disorder, tobacco use disorder who presents following sudden onset left-sided facial droop, slurred speech/aphasia, right hand weakness with spontaneous
resolution. Patient reports that he was moving a pot of food in the kitchen when he noted sudden onset weakness and previously symptoms. Patient subsequently went to the emergency department for evaluation. At that time, patient was noted that
his symptoms had resolved. Neurology was consulted to rule out stroke. EKG demonstrated atrial fibrillation which is a new diagnosis for patient. Patient started on anticoagulation. In discussion with patient, he reports longstanding history of
palpitations which come and go. He reports continued tobacco use roughly 1/2 to 1 pack/day along with daily alcohol use. Patient states that he does not exercise. Patient reports no family history of heart disease.
Progress Note - Media Marketing Manager
Subjective
Date of Service: June 30, 2024
Patient seen and examined. Patient sitting on edge of bed initially on phone when I walked in. Patient reports improved shortness of breath and palpitations.
Objective
Labs:
06/29/24 03:56
06/29/24 21:51
Labs
Hgb 13.8 g/dL (13.0-18.0) 06/29/24 03:56
Hct 39.9 % (39.0-52.0) 06/29/24 03:56
Plt Count 209 10^3/uL (130-400) 06/29/24 03:56
PT 13.1 Sec (11.4-14.6) 06/27/24 18:52
INR 0.96 06/27/24 18:52
APTT Cancelled 06/28/24 20:30
Sodium 138 mmol/L (135-145) 06/29/24 21:51
Potassium 3.9 mmol/L (3.5-5.1) 06/29/24 21:51
BUN 14 mg/dl (9-20) 06/29/24 21:51
Creatinine 0.8 mg/dL (0.7-1.3) 06/29/24 21:51
Glucose 103 mg/dl (70-99) H 06/29/24 21:51
Vital Signs and I&O:
Vital Signs
Temp Pulse Resp BP Pulse Ox
98.0 F 99 18 143/102 99
06/30/24 11:14 06/30/24 11:13 06/30/24 11:14 06/30/24 11:13 06/30/24 11:14
Vital Signs
Temp Pulse Resp BP Pulse Ox
98.0 F 99 18 143/102 99
06/30/24 11:14 06/30/24 11:13 06/30/24 11:14 06/30/24 11:13 06/30/24 11:14
Intake & Output
06/28/24 06/29/24 06/30/24 07/01/24
06:59 06:59 06:59 06:59
Intake Total 1407 / 1407
Balance 1407 / 1407
Physical Exam
Physical Exam
GEN: No distress, awake, Ox3
HEENT: supple, anicteric, mmm
LUNGS: Few scattered crackles at bases otherwise CTA, no wheezes
CV: Irregularly irregular, S1/S2, 1/6 syst murmur, no rub or gallop
ABD: soft, BS+, NT/ND
EXT: No edema, clubbing or cyanosis
NEURO: Gross non-focal
SKIN: No rash, warm, dry, pink
--- NOTE | 2024-06-30 14:44 | W.PN.UPDATE ---
Update Note
Progress Note Update
Patient's Cardiac Stress test showed moderate in size, mild in severity partially reversible mid to distal anterior perfusion defect. This could represent a small amount of anterior ischemia. There is also a small basal to mid inferior perfusion
defect which improves with prone imaging. He inferior defect likely represents attenuation.
#CVA
-Cardio input appreciated
-Patient requires Cardiac Cath
-Due to acute CVA and not having chest pain -> conservative treatment and follow up outpatient for cardiac cath and likely VICENTE cardioversion. Check troponin
-Continue Eliquis
#A-Fib
-Rate control therapy preferred -> Increased carvedilol 12.5mg BID, continue his Entresto, and Aldactone.
-Amiodarone if rate control therapy does not work
-Possible discharge in the morning
--- NOTE | 2024-06-30 15:33 | CM ---
Reviewed chart. Telephone call to [facility] to check on the co-pay for Entresto and Farxiga. His Farxiga co-pay would be $188.55 a month. He can use the free coupon but may have to pay $10.55 a month. Entresto co-pay is $579.00 a month and the
$10.00 coupon bays up to $271.00 so he would have to cover $308.00 a month. Placed the one month free Entresto coupon and the $10.00 a month coupon of Entresto. The Farxiga coupon and Eliquis coupon also in the red discharge folder. Medical
work-up in progress. The discharge plan is to return home with his spouse when medically stable.
[2024-06-30] MEDS: LIPITOR 40 MG PO (17:04)
[2024-06-30] MEDS: COREG 12.5 MG PO (20:50)
--- NOTE | 2024-07-01 04:00 | PTCARENOTE ---
Pt remains in Afib with HR 80s-90s. No complaints of pain or SOB. Ambulating independently in room without difficulty. Plan of care discussed and pt verbalizes understanding. Pt hoping to go home today. Call marks within reach.
[2024-07-01 04:49] VITALS: BP 138/105
[2024-07-01 05:02] VITALS: BMI 28.5
[2024-07-01 05:07] LABS: Hematocrit 44.3 % (39.0-52.0); Hemoglobin 15.8 g/dL (13.0-18.0); Mean Corp Hgb Conc. 35.7 g/dL (33.0-37.0); Mean Corpuscular Hgb 36.7 pg (27.0-31.0); Mean Platelet Volume 10.2 fL (7.4-10.4); Platelet Count 244 10^3/uL (130-400); Red Cell Dist. Width 11.9 % (11.5-14.5); White Blood Cell Count 6.6 10^3/uL (4.8-10.8)
[2024-07-01 05:40] LABS: ALT (SGPT) 64 U/L (0-50); AST (SGOT) 37 U/L (17-59); Alkaline Phosphatase 63 U/L (38-126); Blood Urea Nitrogen 27 mg/dl (9-20); Calcium 8.9 mg/dl (8.4-10.2); Carbon Dioxide 23 mmol/L (22-30); Chloride 102 mmol/L (98-107); Estimated Creatinine Clearance 80 ml/min; Glucose 113 mg/dl (70-99); Potassium 3.8 mmol/L (3.5-5.1); Sodium 134 mmol/L (135-145); Total Bilirubin 0.6 mg/dl (0.2-1.3); Total Protein 6.3 g/dl (6.3-8.2); eGFR > 60.00
[2024-07-01 07:06] VITALS: BP 137/95
[2024-07-01] MEDS: ELIQUIS 5 MG PO (08:07)
[2024-07-01] MEDS: FOLVITE 1 MG PO (08:07)
[2024-07-01] MEDS: ENTRESTO 24 MG/26 MG 1 TAB PO (08:07)
[2024-07-01] MEDS: VITAMIN B1 100 MG PO (08:07)
[2024-07-01] MEDS: ALDACTONE 25 MG PO (08:07)
[2024-07-01] MEDS: COREG 12.5 MG PO (08:07)
--- NOTE | 2024-07-01 09:29 | W.PN.HOSP.TC ---
Addendum entered and electronically signed by Wilber Oshea MD 07/02/24 00:09:
Attending Addendum-
I saw and evaluated the patient. I reviewed the resident�s note and agree with findings and plan as documented in the resident�s note. Sub: feels well. anxious to go home. no CP palps. No neuro deficits. Full 12 point ROS reviewed and negative
except as documented Exam: Vitals reviewed in chart GEN-NAD heart irreg irreg lungs clear abd soft LE no edema Neuro AAO x 3 MS 11/16 no cerebellar deficits no droop
# New onset A-fib with RVR
- rates better controlled
- possible VICENTE CV as OP
- cont coreg
- TTE 06/29-Severely reduced left ventricular systolic function. Left ventricular ejection fraction is 30% by Smith's method. Global
hypokinesis.
- Cardiology on board
- cont eliquis
# ETOH Cardiomyopathy
- lexiscan stress 06/30-Perfusion imaging reveals a moderate in size, mild in severity partially reversible mid to distal anterior perfusion defect. This could represent a small amount of anterior ischemia. There is also a small basal to mid
inferior perfusion defect which improves with prone imaging. Global hypokinesis with EF 22%
- cont entresto, uptitrate coreg
- cont Aldactone
- add sglt2 as OP
- ok for cath as OP
# Acute CVA
- likely embolic from a fib
- left parietal lobe- sxs support location and acuity
- cont lipitor PT OT speech therapy
- GDMT
- neuro on board
- no asa cont eliquis
# Acute kidney injury
- monitor BMP
- resolved
# Transaminitis likely from alcohol abuse
- stable
- f/u as OP
- ETOH cessation
# SONALI/Alcohol dependence
-Monitor MSAS
-no signs of W/D
-advised to quit and seek help
-cont folic and thiamine
# Tobacco Abuse
- advised to quit
- offered lj patch
# DVT prophylaxis
- eliquis
# CODE STATUS
-Full code
Time spent coordinating care, DC planning, review of DC plan of care with resident, transition of care, review of records, med rec/scripts sent electronically, consults, notes, d/w consultants, nursing, cards and CM� 35 mins
Original Note:
Today's Communication/Plan
-
Awaiting Card input for discharge. Patient cleared for discharge by medical team
Assessment / Plan
Assessment / Plan
Assessment: 53 year old male comes to the hospital for evaluation of heart palpatations and TIA symptoms. Patient had weakness in his right side and left sided facial drooping. Patient was diagnosed with A-Fib with RVR and TIA and currently
undergoing further cardiac testing.
Plan:
#CVA
-CT brain Negative
-MRI- Small focus of acute to subacute infarction involving the left parietal lobe postcentral gyrus, laterally.
Small focus of moderate increased diffusion-weighted signal within the white matter of the right frontal lobe. As described above, this is felt to most likely represent T2 shine through from a focus of small vessel ischemic change. A small focus of
acute to subacute infarction is a differential consideration, and please correlate with any symptoms that could be related to a right-sided white matter infarct.
-Possibly secondary to A-Fib
-Neurology input appreciated- will follow up as outpatient
-PT/PT/ST evaluation was refused by patient
-Continue Atorvastatin
-Continue Eliquis 5mg BID as per Neuro
-Due to acute CVA and not having chest pain -> conservative treatment and follow up outpatient for cardiac cath and likely VICENTE cardioversion
#A-Fib with RVR
-Asymptomatic overnight, no new instance of heart palpitations
-Thyroid/Lipids within normal range
-Echocardiogram (06/29/2024) showed Severely reduced left ventricular systolic function. Left ventricular ejection fraction is 30% by Smith's method. Global hypokinesis. Mild concentric left ventricular hypertrophy. Stage I diastolic dysfunction
suggestive of abnormal relaxation.
-Cardiology input appreciated
-Coreg dose updated to 12.5mg BIG
-Continue Entresto 24/26mg daily
-Continue Aldactone
-Patient's Cardiac Stress test showed moderate in size, mild in severity partially reversible mid to distal anterior perfusion defect. This could represent a small amount of anterior ischemia. There is also a small basal to mid inferior perfusion
defect which improves with prone imaging. He inferior defect likely represents attenuation.
-Amiodarone if rate control therapy does not work
#Alcohol Use Disorder
-B12 and Folate levels were within normal range
-Monitor MSAS
-Stressed importance of Alcohol Cessation
#Transaminitis
-Most likely due to ETOH
-Resolving, follow up OP
#RIVER
-Resolved
-Creatinine stable at 0.9
-Probable was secondary to hypovolemia from alcohol use disorder
-IVF were discontinued
#Tobacco use disorder
-Tobacco cessation discussed
Full Code, DVT Prophylaxis: Eliquis
Anticipated Discharge: Today
Subjective/Interval History
-
Date of Service: July 01, 2024
Patient has been feeling well and had no complaints overnight. Is looking forward to getting out of the hospital today.
Objective Data
-
Labs:
Laboratory Results
07/01/24
04:53
WBC 6.6
Hgb 15.8
Hct 44.3
Plt Count 244
Sodium 134 L
Potassium 3.8
Chloride 102
Carbon Dioxide 23
BUN 27 H
Creatinine 1.1
Glucose 113 H
Calcium 8.9
Total Bilirubin 0.6
AST 37
ALT 64 H
Alkaline Phosphatase 63
Vital Signs:
Vital Signs
Temp Pulse Resp BP Pulse Ox
97.7 F 91 18 137/95 100
07/01/24 07:03 07/01/24 09:00 07/01/24 07:03 07/01/24 07:06 07/01/24 07:03
I&O
06/30/24 07/01/24 07/02/24
06:59 06:59 06:59
Intake Total 480 / 480 400 / 400
Balance 480 / 480 400 / 400
Review of Systems
-
History Source: Patient
Constitutional: Reports No Symptoms
EENT: Reports No Symptoms Reported
Respiratory: Denies Cough or Trouble Breathing
Cardiac: Denies Chest Pain, Palpitations or Syncope
Abdomen/GI: Denies Abdominal Pain, Nausea or Vomiting
Genitourinary: Reports No Symptoms
Musculoskeletal: Reports No Symptoms
Skin: Reports No Symptoms
Neuro: Denies Headache, Weakness or Numbness
Endocrine: Reports No Symptoms
Hematologic / Lymphatic: Reports No Symptoms
Allergy / Immunology: Reports No Symptoms
Physical Exam
-
General: Well Developed, Well Nourished, No Apparent Distress and Comfortable
HEENT: Normocephalic and Atraumatic
Respiratory: Clear to Auscultation and Non Labored Respirations
Cardiac: S1/S2 and Irregular Rhythm
GI: Soft, Nontender and Nondistended
Musculoskeletal: No Clubbing, No Cyanosis and No Edema
Skin: Warm and Dry
Neuro: Awake, Alert, Oriented and AO x 3
Psych: Calm
Data Reviewed
-
Medical Tests (Nuc Med, Echo etc): Report Reviewed by me, Discussed with Physician and Discussed with Patient
Labs: Labs Reviewed by me, Discussed with Physician and Discussed with Patient
--- NOTE | 2024-07-01 11:11 | W.PN.CARDCBS ---
Addendum entered and electronically signed by Bala Clayton MD 07/01/24 13:46:
I saw and examined the patient.
The HOME [employer]PLI[employer]ES MECHANIC or PA's note was reviewed and I agree with the note.
Comment: General: Well developed, well nourished in NAD.
Neck: Supple, no JVD, HJR, carotids +2 B/L, no bruits bilaterally.
Heart: Non displaced PMI, RRR, no murmurs, No S3, S4, no rubs.
Lungs: Clear to auscultation bilaterally, no wheeze, rhonchi, rubs bilaterally,
normal expiratory phase.
Extremities: No clubbing, cyanosis or edema bilaterally.
Neuro: Grossly nonfocal, awake, alert and oriented x3.
Stable cardiology status for discharge. Follow-up arranged.
Original Note:
Today's Communication / Plan
-
Cardiac meds e-scribed
Cardiology f/u arranged
Impression / Plan
-
PCP: None
Cardiology: None, Initial consult Dr Laguerre
Impression:
Admitted with aphasia, right sided weakness, facial droop 06/27/24
Acute to subacute left parietal stroke
RIVER, resolved
Abnormal LFTs
Newly diagnosed paroxysmal to persistent atrial fibrillation w/ RVR
New start to chronic Eliquis OAC
CM EF 30% by echo 06/29/24
Abnormal Lexiscan nuclear stress test 06/30/2024
Moderate sized mild partially reversible mid to distal anterior perfusion defect that could represent a small area of anterior ischemia
Chronic HFrEF
Alcohol use disorder
Tobacco use disorder
Echo with Definity 06/29/2024: EF 30%, global hypokinesis, mild concentric LVH. Stage I DD. Moderate MR. Mild TR. RVSP 35 to 40 mmHg.
Lexiscan nuclear stress test 06/30/2024: moderate in size, mild in severity partially reversible mid to distal anterior perfusion defect. This could represent a small amount of anterior ischemia. There is also a small basal to mid inferior perfusion
defect which improves with prone imaging. He inferior defect likely represents attenuation.
Plan:
-Patient with new stroke on admission and no residual symptoms. MRI reviewed with patient and he has films on CD as well to take home with him.
-Patient with new Afib on admission. Afib is paroxysmal to persistent. Patient is not a candidate for CV due to CVA, but if remains in Afib as an outpatient in 4-6 weeks could consider elective VICENTE/CV.
-HRs controlled with Coreg 12.5 mg BID which is new this admission
-New to Eliquis 5 mg BID (age 53, wt 90.2 kg). Appreciate help of CM and determining cost patient can use the 1 month free coupon and then with the co-pay card his cost will be down to $10 a month.
-New CM this admission. Stress test as noted above. No large area of ischemia. Patient denies chest pain. Plan is to monitor as an outpatient and consider cardiac cath 1-2 months from now and would need to consider timing of possible VICENTE/CV as well.
-New to Coreg as noted.
-Also new to Entresto 24/26 mg BID. Again, greatly appreciate the help of CM and checking the cost of this medication. The patient can use the 1 month free card and then the co-pay card only pays up to $271 of what insurance will not cover which
would leave patient with just over $300 a month that he has to pay [id number] for Entresto. We talked about alternatively starting MARCELO/ARB, but patient feels confident that he can afford the co-pay for Entresto and would like to move forward
with that medication.
-New to spironolactone 25 mg daily. Will need BMP to monitor lytes in 1-2 weeks and again in 1 month.
-LDL 66, new to atorvastatin 40 mg daily.
-No evidence of acute HF this admission, no diuretics given.
-Patient says he is working on a plan for ETOH reduction and cessation.
-Stable for d/c to home. Cardiac meds reconciled and e-scribed. 53 min face to face, communicating with hospitalist attending and coordination of outpatient care.
HPI 06/29/2024:
Patient is a pleasant 53-year-old male with past medical history significant for alcohol use disorder, tobacco use disorder who presents following sudden onset left-sided facial droop, slurred speech/aphasia, right hand weakness with spontaneous
resolution. Patient reports that he was moving a pot of food in the kitchen when he noted sudden onset weakness and previously symptoms. Patient subsequently went to the emergency department for evaluation. At that time, patient was noted that
his symptoms had resolved. Neurology was consulted to rule out stroke. EKG demonstrated atrial fibrillation which is a new diagnosis for patient. Patient started on anticoagulation. In discussion with patient, he reports longstanding history of
palpitations which come and go. He reports continued tobacco use roughly 1/2 to 1 pack/day along with daily alcohol use. Patient states that he does not exercise. Patient reports no family history of heart disease.
Progress Note - Lifeguard
Subjective
Date of Service: July 01, 2024
He feels well, no facial droop, speech feels normal, less palpitations
Objective
Labs:
07/01/24 04:53
07/01/24 04:53
Labs
Hgb 15.8 g/dL (13.0-18.0) 07/01/24 04:53
Hct 44.3 % (39.0-52.0) 07/01/24 04:53
Plt Count 244 10^3/uL (130-400) 07/01/24 04:53
PT 13.1 Sec (11.4-14.6) 06/27/24 18:52
INR 0.96 06/27/24 18:52
APTT Cancelled 06/28/24 20:30
Sodium 134 mmol/L (135-145) L 07/01/24 04:53
Potassium 3.8 mmol/L (3.5-5.1) 07/01/24 04:53
BUN 27 mg/dl (9-20) H 07/01/24 04:53
Creatinine 1.1 mg/dL (0.7-1.3) 07/01/24 04:53
Glucose 113 mg/dl (70-99) H 07/01/24 04:53
Vital Signs and I&O:
Vital Signs
Temp Pulse Resp BP Pulse Ox
97.7 F 91 18 137/95 100
07/01/24 07:03 07/01/24 09:00 07/01/24 07:03 07/01/24 07:06 07/01/24 07:03
Vital Signs
Temp Pulse Resp BP Pulse Ox
97.7 F 91 18 137/95 100
07/01/24 07:03 07/01/24 09:00 07/01/24 07:03 07/01/24 07:06 07/01/24 07:03
Intake & Output
06/29/24 06/30/24 07/01/24 07/02/24
06:59 06:59 06:59 06:59
Intake Total 1407 / 1407 480 / 480 400 / 400
Balance 1407 / 1407 480 / 480 400 / 400
Physical Exam
Physical Exam
GEN: NAD. AAOx3
HEENT: normal facies, EOMI
LUNGS: RA, no audible wheeze
CV: Afib on tele
ABD: ND
EXT: No edema
NEURO: Gross non-focal
SKIN: No rash
[2024-07-01 11:38] VITALS: BP 125/89
--- NOTE | 2024-07-01 13:31 | PTCARENOTE ---
IV and tele removed. Discharge instructions reviewed w/ pt. Verbalizes understanding. Belongings collected and sent w/ pt. Discharged to home.
--- NOTE | 2024-07-01 14:58 | W.DCSUMMARY ---
Addendum entered and electronically signed by Wilber Oshea MD 07/02/24 00:10:
Read, reviewed, and agree. See same day progress note for additional details.
Conrado Oshea MD
Original Note:
Documented by User: Felicitas Blanco MD, Resident 07/01/24 17:39
Discharge Summary
Discharge Data
Date of Admission: 06/27/24
Date of Discharge: 07/01/24
-
Pending Results: No
Hospital Course
Discharging Physician : Dr. Wilber Oshea, Dr. Felicitas Blanco
Disposition : Home
Primary care physician : None
Principal Discharge diagnosis : New Onset Atrial Fibrillation with RVR
Chronic Discharge diagnosis : Acute CVA, Severe Ischemic Cardiomyopathy, Alcohol Use Disorder, Tobacco Use disorder, Acute Kidney Injury, Transaminitis
Hospital Course : 53 year old male with a past medical history of alcohol and tobacco abuse came to the ED on 06/27/2024 complaining of R finger tingling/numbness, speech difficulty, and left facial droop. His symptoms lasted only for a few minutes
and fully resolved with some tingling that remained in his right finger. He had not had any symptoms like this in the past. Patient was found to be in A-Fib with RVR on initial assessment and said that he had been getting intermittent palpitations
for the past year or so. Patient was admitted for further evaluation and treatment for his A-fib and neurological symptoms. He was started on Cardizem and Heparin with Cardiology following. His CT brain/CTA head/neck were unremarkable and a brain
MRI was ordered. MRI showed a left parietal lobe CVA which supported the neurological symptoms reported by the patient. He was transitioned from heparin to Eliquis and continued to be monitored by neurology. CVA was most likely due to his new onset
A-fib and patient remained in A-fib even with Cardizem. Patient underwent an Echocardiogram and was found to have severe left ventricle dysfunction. His diltiazem was switched to carvedilol 6.25mg daily and Entresto was added as well. He then
underwent ischemic assessment with a Lexiscan nuclear stress test which showed a moderate, mildly reversible anterior perfusion defect and a mild predominantly fixed inferior perfusion defect. Patient was counseled that he needed a cardiac
catherization but would be treated conservatively for now due to his recent acute CVA and being asymptomatic. Patient's carvedilol was increased to 12.5, and he was to continue Entresto along with Aldactone. He will follow up with Cardiology as an
outpatient setting where he will schedule a cardiac cath and likely VICENTE cardioversion. Patient was still in A-Fib but stable upon discharge.
Important imaging findings :
CT Head & Neck Angio W/wo IV (06/27/2024)
-CT Brain: No acute intracranial process. Specifically, no evidence of acute hemorrhage.
-CTA Head: No significant arterial stenosis. No saccular aneurysm.
-CTA Neck: No significant arterial stenosis.
MR Brain Without Contrast (06/28/2024)
-Small focus of acute to subacute infarction involving the left parietal lobe postcentral gyrus, laterally.
-Small focus of moderate increased diffusion-weighted signal within the white matter of the right frontal lobe. As described above, this is felt to most likely represent T2 shine through from a focus of small vessel ischemic change. A small focus of
acute to subacute infarction is a differential consideration, and please correlate with any symptoms that could be related to a right-sided white matter infarct.
-Mild diffuse atrophy in this 53-year-old patient.
CR Chest Portable - 1 View (06/28/2024)
-Small linear densities within the medial left lower lung, most likely focal linear atelectasis.
-Cardiomegaly with no evidence for pulmonary edema or pleural effusion.
Echocardiogram- (06/29/2024)
-Left ventricle is mildly dilated. Severely reduced left ventricular systolic function. Left ventricular ejection fraction is 30% by Smith's method. Global hypokinesis. Mild concentric left ventricular hypertrophy. Stage I diastolic
dysfunction suggestive of abnormal relaxation.
-Normal right ventricular size. Normal right ventricular systolic function.
-Structurally normal mitral valve. Mitral valve opens normally. Moderate mitral
regurgitation.
-Structurally normal tricuspid valve. Tricuspid valve opens normally. Mild tricuspid regurgitation. Estimated pulmonary artery pressure of 35-40 mmHg.
-Definity contrast was used to enhance endocardial definition. There is no
evidence of left ventricular apical thrombus.
Procedure findings :
Nuclear/stress Exercise
-Perfusion imaging reveals a moderate in size, mild in severity partially reversible mid to distal anterior perfusion defect. This could represent a small amount of anterior ischemia. There is also a small basal to mid inferior perfusion defect
which improves with prone imaging. He inferior defect likely represents attenuation.
EKG is nondiagnostic for ischemia due to marked LVH. Of note, there was several couplets and 3 beat runs of nonsustained ventricular tachycardia with exercise.
-The exercise tolerance is poor for given age and gender.
-Stress Risk is high due to perfusion defect and markedly reduced ejection fraction.
(Serna Treadmill Score = +6)
-Systolic function is severely reduced with global hypokinesis. The ejection fraction is 22%
Discharge Plan
-
Patient Disposition: Home (Routine Discharge)
Discharge Diagnosis/Procedures: Cardiomyopathy with ejection fraction 30% and global hypokinesis
Condition: Good
Diet: 2 Gram Sodium
Activity: As tolerated
Driving Restrictions: As prior to admission
Bathing Restrictions: None
Other Services: Cardiac Rehab
Specialty Instructions: Weigh Daily- Call MD for wt gain/loss 3 lbs overnight/5 lbs in 1 week
Referrals:
NONE,* [Family Provider] -
Xavi Laguerre, DO [Active] - 07/03/24 12:40 pm (You have an appointment to see Dr. Laguerre's nurse practitioner, Dayana, in the [facility] office this Saturday at 12:40 PM. Please call [phone] if you need to reschedule.)
Prescriptions:
New
carvedilol 12.5 mg Tablet
12.5 mg PO BID Qty: 60 11RF
spironolactone 25 mg Tablet
25 mg PO DAILY Qty: 30 11RF
Eliquis 5 mg Tablet
5 mg PO BID Qty: 60 11RF
sacubitril-valsartan [Entresto] 24-26 mg Tablet
1 tab PO BID Qty: 60 11RF
atorvastatin 40 mg Tablet
40 mg PO QPM Qty: 30 11RF
Discharge Orders:
Discharge Patient (As Directed); Ordered 07/01/24
Ordered By: Felicitas Blanco
Care Plan Goals
Care Plan Goals:
Problem: Readiness for enhanced knowledge related to diagnosis and treatment plan
Goal: Understand your diagnosis and treatment plan needs, including medications if applicable.
Instructions: Know your diagnosis, underlying causes and treatment plan options, including medications if applicable. Consult with your health care team to learn about your diagnosis and treatment plan, including medications if applicable.
Discharge Date and Time
Discharge Date/Time: 07/01/24 13:32
Print Language: BULGARIAN

Documented by User: Wilber Oshea MD 07/02/24 00:05
Discharge Summary
Discharge Data
Date of Admission: 06/27/24
Date of Discharge: 07/02/24
Discharge Plan
-
Patient Disposition: Home (Routine Discharge)
Discharge Diagnosis/Procedures: Cardiomyopathy with ejection fraction 30% and global hypokinesis
Condition: Good
Diet: 2 Gram Sodium
Activity: As tolerated
Driving Restrictions: As prior to admission
Bathing Restrictions: None
Other Services: Cardiac Rehab
Specialty Instructions: Weigh Daily- Call MD for wt gain/loss 3 lbs overnight/5 lbs in 1 week
Referrals:
NONE,* [Family Provider] -
Xavi Laguerre DO [Active] - 07/03/24 12:40 pm (You have an appointment to see Dr. Laguerre's nurse practitioner, Dayana, in the [place] office this Saturday at 12:40 PM. Please call [phone] if you need to reschedule.)
Prescriptions:
New
carvedilol 12.5 mg Tablet
12.5 mg PO BID Qty: 60 11RF
spironolactone 25 mg Tablet
25 mg PO DAILY Qty: 30 11RF
Eliquis 5 mg Tablet
5 mg PO BID Qty: 60 11RF
sacubitril-valsartan [Entresto] 24-26 mg Tablet
1 tab PO BID Qty: 60 11RF
atorvastatin 40 mg Tablet
40 mg PO QPM Qty: 30 11RF
Discharge Orders:
Discharge Patient (As Directed); Ordered 07/01/24
Ordered By: Felicitas Blanco
Care Plan Goals
Care Plan Goals:
Problem: Readiness for enhanced knowledge related to diagnosis and treatment plan
Goal: Understand your diagnosis and treatment plan needs, including medications if applicable.
Instructions: Know your diagnosis, underlying causes and treatment plan options, including medications if applicable. Consult with your health care team to learn about your diagnosis and treatment plan, including medications if applicable.
Discharge Date and Time
Discharge Date/Time: 07/01/24 13:32
Print Language: BULGARIAN
== END 2024-07-01 13:32 | disposition home or self-care (01) | DRG 308 ==
LOC: IVU 22:07
PROVIDERS: Internal Medicine Cardiovascular Disease; Registered Nurse; Student in an Organized Health Care Education/Training Program; ADMITTING PHYSICIAN Hospitalist; ATTENDING PHYSICIAN Family Medicine; CONSULT PHYSICIAN Internal Medicine Cardiovascular Disease; CONSULT PHYSICIAN Psychiatry & Neurology Neurology; EMERGENCY PHYSICIAN Student in an Organized Health Care Education/Training Program
PROC: 3E033HZ Introduction of Radioactive Substance into Peripheral Vein, Percutaneous Approach (ICD-10-PCS; 2024-06-30)
PROC: 4A02XM4 Measurement of Cardiac Total Activity, External Approach (ICD-10-PCS; 2024-06-30)
DX: I48.91 Unspecified atrial fibrillation (principal); I63.9 Cerebral infarction, unspecified; N17.9 Acute kidney failure, unspecified; R47.01 Aphasia; I25.5 Ischemic cardiomyopathy; F17.210 Nicotine dependence, cigarettes, uncomplicated; F10.20 Alcohol dependence, uncomplicated; Z80.1 Family history of malignant neoplasm of trachea, bronchus and lung; I42.9 Cardiomyopathy, unspecified; R29.810 Facial weakness; I34.0 Nonrheumatic mitral (valve) insufficiency; I47.20 Ventricular tachycardia, unspecified; D75.89 Other specified diseases of blood and blood-forming organs; Z88.6 Allergy status to analgesic agent
CPT/HCPCS: 70496; 70498; 70551; 71045; 78452; 80048; 80053; 80061; 80306; 81003; 82010; 82077; 82248; 82607; 82746; 82962; 82977; 83036; 83735; 83880; 84100; 84443; 85025; 85027; 85610; 85730; 92523; 93005; 93017; 93306; 96365; 96366; 96367; 97161; 97166; 99291; A9500; J2785; Q9950; Q9967

== ENCOUNTER 2024-08-14 08:26 | Day surgery (SDC) | payer BC, SELFPAY ==
[2024-08-14] VITALS (10 sets, daily range): BP systolic 118–144; BP diastolic 86–124; BMI 30.1
[2024-08-14 08:49] LABS: Hematocrit 41.3 % (39.0-52.0); Hemoglobin 14.5 g/dL (13.0-18.0); Mean Corp Hgb Conc. 35.1 g/dL (33.0-37.0); Mean Corpuscular Hgb 35.5 pg (27.0-31.0); Mean Platelet Volume 9.8 fL (7.4-10.4); Platelet Count 253 10^3/uL (130-400); Red Blood Cell Count 4.09 10^6/uL (4.70-6.10); Red Cell Dist. Width 11.8 % (11.5-14.5); White Blood Cell Count 5.7 10^3/uL (4.8-10.8)
[2024-08-14 09:00] LABS: Blood Urea Nitrogen 17 mg/dl (9-20); Calcium 8.6 mg/dl (8.4-10.2); Carbon Dioxide 25 mmol/L (22-30); Chloride 107 mmol/L (98-107); Glucose 101 mg/dl (70-99); Potassium 4.2 mmol/L (3.5-5.1); Sodium 141 mmol/L (135-145); eGFR > 60.00
[2024-08-14] MEDS: NSS 277 ML IV (09:23)
--- NOTE | 2024-08-14 11:32 | ITS.CL.CATH ---
Tube Puller - Catheterization
Cardiac Catheterization
Procedure Report:
LEFT HEART CATHETERIZATION
Date of Procedure: August 14, 2024
Referring: Dr. Xavi Laguerre
PROCEDURES:
1. Coronary angiography
INDICATION: New cardiomyopathy. Patient was found to have a moderately abnormal stress test this is this is accidental with new onset atrial fibrillation and severe LV dysfunction. He had been consuming a 750 mL bottle of liquor in less than 2
days and has 'cut back' to 4-5 beers per day. He is referred for coronary angiography given the stress test findings
ACCESS: Right radial artery, 6 [place] sheath
HEMODYNAMICS : (mmHg)
AO (s/d) : 149/102
CORONARY FINDINGS
DOMINANCE: Right
LEFT MAIN: Normal
LEFT ANTERIOR DESCENDING: The LAD arises normally from the left main and runs in the anterior interventricular groove. The first diagonal branch arises from the proximal third of the LAD. The remainder of the LAD has only minor irregularity
CIRCUMFLEX: The circumflex is a moderate caliber nondominant vessel giving rise to a large bifurcating OM1 and terminating in a smaller OM 2. Circumflex is widely patent
RIGHT CORONARY ARTERY: The right coronary artery is a dominant vessel with a 20% proximal stenosis. The remainder of the RCA is widely patent. The PDA is large. The posterolateral branch is large
VENTRICULOGRAPHY: Not done
RADIATION SUMMARY: Fluoro Time (min): 3.3, Dose (mGy): 296.4, DAP (Gy.cm2) : 19.6
Closure Device: TR band
CONCLUSIONS
1. Nonobstructive coronary disease
RECOMMENDATIONS
1. Follow-up with Dr. Laguerre as scheduled
Copy to: Dr. Xavi Laguerre
[2024-08-14] MEDS: NSS 1000 IV (11:45)
== END 2024-08-14 14:10 | disposition home or self-care (01) ==
LOC: CATH 08:26
PROVIDERS: ATTENDING PHYSICIAN Internal Medicine Interventional Cardiology
DX: I25.10 Atherosclerotic heart disease of native coronary artery without angina pectoris (principal); I42.9 Cardiomyopathy, unspecified; I48.91 Unspecified atrial fibrillation; R94.39 Abnormal result of other cardiovascular function study; Z79.01 Long term (current) use of anticoagulants; Z79.899 Other long term (current) drug therapy
CPT/HCPCS: 80048; 85027; 93458; C1894; Q9967

== ENCOUNTER 2024-09-18 07:05 | Day surgery (SDC) | payer BC, SELFPAY ==
--- NOTE | 2024-09-19 19:56 | ITS.CL.CARDI ---
Gis Administrator - Cardioversion
Cardioversion
Procedure Report:
Date of Procedure: 09/18/24
Procedure: Cardioversion
Indication: Symptomatic atrial fibrillation
Performing Physician: Crystal Acosta DO [facility]
Technique: The patient was brought to the holding area. Signed informed consent was obtained. A time out was called and performed. The patient was anesthetized by the anesthesia service. Transesophageal echocardiogram performed; no left atrial
appendage thrombus. Anticoagulation status was reviewed and appropriate. R2 pads were placed anteriorly and posteriorly. A 200 J synchronized biphasic shock restored normal sinus rhythm without significant bradycardia. There were no complications.
Conclusion: Uncomplicated cardioversion from atrial fibrillation to sinus rhythm.
Recommendation: Routine post cardioversion care. Continue retirement anticoagulation.
== END 2024-09-18 09:02 ==
LOC: CATH 07:05
PROVIDERS: ATTENDING PHYSICIAN Internal Medicine Cardiovascular Disease; OTHER PHYSICIAN Internal Medicine Cardiovascular Disease
DX: I48.19 Other persistent atrial fibrillation (principal); R00.2 Palpitations; I42.9 Cardiomyopathy, unspecified; I25.10 Atherosclerotic heart disease of native coronary artery without angina pectoris; I08.1 Rheumatic disorders of both mitral and tricuspid valves; Z87.891 Personal history of nicotine dependence; Z79.01 Long term (current) use of anticoagulants
CPT/HCPCS: 93312; 93320; 93325; 92960; 93005

== ENCOUNTER → 2025-04-22 09:16 | Day surgery (SDC) | payer BC, SELFPAY ==
[2025-04-22] MEDS: ELIQUIS 5 MG PO (10:23)
--- NOTE | 2025-04-22 11:12 | ITS.CL.CARDI ---
Feeder Driver - Cardioversion
Cardioversion
Procedure Report:
Procedure: VICENTE-guided electrical cardioversion
Pre-operative diagnosis: Persistent atrial fibrillation
Post-operative diagnosis: Persistent atrial fibrillation status post DC cardioversion to sinus rhythm
Anesthesia: MAC
Attending Physician: Jose Martell MD
Procedure Description: The patient was brought to the electrophysiology laboratory in the fasting state. Informed consent was obtained from the patient prior to the start of the procedure. Adherence to anticoagulation was confirmed. Electrodes were
placed on the patient and connected to an external defibrillator. Monitoring of blood pressure, ECG tracings, and pulse oximetry was initiated. The pads were applied to the patient in the anterior and posterior positions. The patient was sedated by
the anesthesiologist. A VICENTE (reported separately) was performed prior to the cardioversion. No left atrial or left atrial appendage thrombus was seen. After the VICENTE probe was removed, a 200 joule biphasic synchronized shock was delivered to the
patient under MAC anesthesia. Sinus rhythm was successfully restored. The patient recovered uneventfully from MAC anesthesia. There were no immediate post-procedure complications. The patient left the lab in good condition. The attending physician
was present throughout the entire procedure.
Impression: Successful VICENTE-guided direct current cardioversion with latter-day of sinus rhythm after one 200 joule biphasic synchronized shock.
== END ==
LOC: CATH 09:16
PROVIDERS: ATTENDING PHYSICIAN Internal Medicine Cardiovascular Disease; OTHER PHYSICIAN Internal Medicine Cardiovascular Disease
DX: I48.19 Other persistent atrial fibrillation (principal); I08.1 Rheumatic disorders of both mitral and tricuspid valves; I08.8 Other rheumatic multiple valve diseases; F17.210 Nicotine dependence, cigarettes, uncomplicated; Z79.01 Long term (current) use of anticoagulants
CPT/HCPCS: 93312; 93320; 93325; 92960; 93005